=== PATIENT | female | born 1960 | race Two or more races ===

== ENCOUNTER → 2018-08-08 10:23 | Outpatient (CLI) | payer OTHER, SELFPAY ==
--- NOTE | 2018-08-08 | COLBX_PTH ---
PATIENT: RAZ TIRADO LOC: [facility] U#:[id number] AGE/SX: 65/F ROOM: RE08/08/[address]: Dr. Ag Cobb MD : 1960 BED: DIS: SPEC #: [id number] RECD: 08/08/18 15:36 STATUS: JAZMYNE AGUILA #: [id number] NINA: 08/08/18 00:[address]: Ag Cobb DEPT: SURGICAL PATHOLOGY RECD BY: Quincy Mcghee ENTERED: 08/11/18 13:37 SP TYPE: COLON BX OTHR DR: TEZ Tissues: Sigmoid colon biopsy Procedures: Surgery Specimen Level IV HEADER OPERATION: Colonoscopy with biopsies PRE-OP DIAGNOSIS: History of polyps TISSUE SUBMITTED: Sigmoid polyp, rule out adenoma MICROSCOPIC DIAGNOSIS Sigmoid polyp, biopsy: Fragments of hyperplastic polyp. SJ:osman 08/12/18 MICROSCOPIC DESCRIPTION Slides are reviewed. GROSS DESCRIPTION Received in fixative is one container labeled with the patient's name and designated sigmoid polyp. The specimen consists of multiple irregular fragments of light em soft tissue that in aggregate measure 1 x 0.3 x 0.1 cm. The specimen is totally submitted in one cassette. / SJ:osman 08/11/18 TC:1 CPT: 64101
== END ==
PROVIDERS: Referring Provider Internal Medicine Gastroenterology; Visit Provider Internal Medicine Gastroenterology
DX: K63.5 Polyp of colon (principal)
CPT/HCPCS: 88305

== ENCOUNTER → 2020-04-15 09:35 | Outpatient (CLI) | payer OTHER, SELFPAY ==
--- NOTE | 2020-04-15 09:38 | RAD_ITS ---
STUDY: RIGHT HIP INJECTION REASON FOR EXAM: Female, 59 years old. Severe pain, decreased range of motion RADIATION DOSAGE (If Supplied By Facility): CTDIvol = ( ) mGy, DLP = ( ) mGycm. Individualized dose optimization techniques were used for this CT.? FLUOROSCOPY TIME (if supplied): ( 30 ) seconds TECHNIQUE: Fluoroscopically guided right hip injection COMPARISON: None. FINDINGS: After informed consent was obtained, the patient was placed on the fluoroscopic table in the supine position, and an appropriate site for right hip injection was determined. The area was prepped and draped in a sterile manner, and 2% Xylocaine was used as local anesthetic. Under fluoroscopic guidance, a 22-gauge spinal needle was advanced into the right hip capsule without difficulty. Patient was injected with a 4 mL solution of betamethasone and Xylocaine. Patient tolerated the procedure well with no immediate complications RAD/Inj/Asp Anibal Jt Should/Hip/Knee IMPRESSION: Successful fluoroscopically guided right hip injection Electronically Signed: Christiano Roblero MD at 13:56 EDT , Service support ,
== END ==
PROVIDERS: PCP Nurse Practitioner Family; Referring Provider Specialist; Visit Provider Specialist
DX: M16.11 Unilateral primary osteoarthritis, right hip (principal)
CPT/HCPCS: 20610; 77002; Q9967; J0702

== ENCOUNTER → 2025-10-06 | Outpatient (CLI) | payer MEDICARE, SELFPAY ==
--- NOTE | 2025-10-06 12:10 | RAD_ITS ---
PROCEDURE: HIP, UNI W/ PELVIS 2-3 VIEWS 10/06/2025 REASON FOR EXAM: RIGHT HIP PAIN TECHNIQUE: Procedure Code: RAD Modality: DX Procedure: HIP, UNI W/ PELVIS 2-3 VIEWS Laterality: Right FINDINGS: Status post right hip arthroplasty. No evidence of acute complication. Mild degenerative changes of the left hip. Degenerative changes of the partially visualized spine. RAD/HIP, UNI W/ Pelvis 2-3 Views IMPRESSION: As above. Reading Location: [facility]
--- OUTSIDE RECORDS SUMMARY | 2025-10-06 19:28 | XMS RPT_ITS | CCD ---
Author Organization [facility] Care Team Providers [facility] Consultant Name Role Phone BARNDON JOHNS Attending Unavailable ANDREASBRANDON Primary Care Unavailable ANDREASBRANDON Admitting Unavailable ANDREASBRANDON Attending Unavailable ANDREASBRANDON LEROY Primary Care Unavailable ANDREAS, BRANDON Jordan Admitting Unavailable BEBETO TUBING MILL 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, EVELIO Chao Primary Care [facility] WILLIAM DALTON Attending Unavailable BEBETO TUBING MILL 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, EVELIO Chao Primary Care U jade JONES MD, NGOC Attending Unavailable BEBETO TUBING MILL 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, EVELIO Chao Primary Care U jade JONES MD, NGOC Attending Unavailable BEBETO TUBING MILL 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, EVELIO Chao Primary Care U jade JONES MD, NGOC Consulting Unavailable BEBETO TUBING MILL 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, EVELIO Chao Primary Care U navailable BEBETO TUBING MILL 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, EVELIO Chao Attending U navailable BEBETO TUBING MILL 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, EVELIO Chao Attending U navailable BEBETO TUBING MILL 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, EVELIO Chao Primary Care U navailable BEBETO TUBING MILL 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, EVELIO Chao Attending U navailable BEBETO TUBING MILL 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, EVELIO Chao Primary Care U navailable BEBETO TUBING MILL 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, EVELIO Chao Primary Care U navailable BEBETO TUBING MILL 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, EVELIO Chao Attending U navailable Allergies Allergy Classification Reported Allergen(s) Allergy Type Date of Onset Reaction(s) Facility (8 sources) Doxycycline; Translations: [doxycycline] Drug Allergy Skin irritation (disorder), Blister (morphologic abnormality) [facility] Comment on above: Patient had extreme sensitivity to sun, cold and hot water. (3 sources) terbinafine; Translations: [terbinafine] Drug Allergy Constitutional sun sensitivity finding (finding) [facility] Medications Current Medications Medication Drug Class(es) Dates Sig (Normalized) Sig (Original) acetaminophen 325 mg / HYDROcodone bitartrate 5 mg oral tablet (1 source) Opioid Agonist Start: 07-22-2023 End: 07-27-2023 Guthrie 325- 5 mg oral tablet Dose = 1 tab(s), Oral, q4h, PRN Pain, scale 1-6, X 5 day(s), # 12 tab(s), 0 Refill(s), Pharmacy: [facility] #[id number], Acute post-operative pain, 165.1, cm, 07/22/23 8:50:00 EDT, Height, 86.3, kg, 07/22/23 8:50:00 EDT, Dosing Weight Start Date: 07/22/23 Stop Date: 07/27/23 Status: Ordered Aspir-Low 81 mg oral delayed release tablet (1 source) Start: 04-20-2019 Aspir-Low 81 mg oral delayed release tablet Dose : 81 mg = 1 tab(s), Oral, qDay, # 30 tab(s), 0 Refill(s) Start Date: 04/20/19 Status: Ordered Quantity: 30.0 Unit: tab(s) Repeat number: 1 aspirin 81 mg delayed release oral tablet (5 sources) Platelet Aggregation Inhibitor, Nonsteroidal Anti-inflammatory Drug Start: 04-20-2019 Aspir-Low 81 mg oral delayed release tablet Dose : 81 mg = 1 tab(s), Oral, qDay, # 30 tab(s), 0 Refill(s) Start Date: 04/20/19 Status: Ordered betamethasone 0.5 mg/ml topical cream (3 sources) Corticosteroid Start: 10-20-2024 apply 1 [IU] topically twice daily as needed betamethasone dipropionate 0.05% topical cream Apply 1 clinton, Topical, BID, PRN Rash, # 30 gram(s), 1 Refill(s), Pharmacy: [facility]/pharmacy #[id number], Cream, 165, cm, 10/20/24 9:25:00 EST, Height, 88.1, kg, 10/20/24 9:25:00 EST, Dosing Weight Start Date: 12/31/24 Status: Ordered Quantity: 30.0 Unit: g Repeat number: 2 Indications: Other psoriasis; Calcium, Magnesium and Zinc oral capsule (2 sources) Start: 05-11-2025 take 1 capsule by mouth twice daily at mealtime Calcium, Magnesium and Zinc oral capsule Dose = 3 cap(s), Oral, BID, with food, # 100 cap(s), 0 Refill(s) Start Date: 05/11/25 Status: Ordered Quantity: 100.0 Unit: cap(s) Repeat number: 1 Calcium, Magnesium and Zinc oral tablet (7 sources) Start: 07-10-2023 take 1 tablet by mouth once daily Calcium, Magnesium and Zinc oral tablet Dose = 1 tab(s), Oral, qDay, # 30 tab(s), 0 Refill(s) Start Date: 07/10/23 Status: Ordered Quantity: 30.0 Unit: tab(s) Repeat number: 1 Start: 07-10-2023 take 1 tablet by cherelle th once daily Calcium, Magnesium and Zinc oral tablet Dose = 1 tab(s), Oral, qDay, # 30 tab(s), 0 Refill(s) Start Date: 07/10/23 Status: Ordered Start: 08-30-2020 take 1 tablet by cherelle th once daily Calcium, Magnesium and Zinc oral tablet tab(s), Oral, qDay, 0 Refill(s) Start Date: 08/30/20 Status: Ordered Cholecalciferol (8 sources) Vitamin D Start: 07-19-2020 take 1 capsule by mouth once daily Vitamin D (3) 45 units oral capsule qDay, 0 Refill(s) Start Date: 07/19/20 Status: Ordered Repeat number: 1 Start: 07-19-2020 Vitamin D (3) 45 units oral capsule qDay, 0 Refill(s) Start Date: 07/19/20 Status: Ordered clonazePAM 0.5 mg oral tablet (8 sources) Benzodiazepine Start: 02-25-2025 End: 05-26-2025 clonazePAM 0.5 mg oral tablet Dose : 0.5 mg = 1 tab(s), Oral, BID, Fill Date: 02/24/2025, # 60 tab(s), 2 Refill(s), Pharmacy: [facility]/pharmacy #[id number], MARZENA (generalized anxiety disorder) Medication management contract signed 03/2021, 165, cm, 02/25/25 9:56:00 EDT, Height, 87.2, kg, 02/25/25 9:56:00 EDT, Dosing Weight Start Date: 02/25/25 Stop Date: 05/26/25 Status: Ordered Quantity: 60.0 Unit: tab(s) Repeat number: 3 Indications: Encounter for other administrative examinations; Generalized anxiety disorder; Start: 11-22-2023 End: 05-20-2024 clonazePAM 0.5 mg oral table t Dose : 0.5 mg = 1 tab(s), Oral, BID, Fill Date: 02/21/2024, # 60 tab(s), 2 Refill(s), Pharmacy: [facility] #[id number], MARZENA (generalized anxiety disorder) Medication management contract signed 03/2021, 165.6, cm, 02/20/24 9:43:00 EDT, Height, 90.3, kg, 02/20/24 9:43:00 EDT, Dosing Weight Start Date: 02/20/24 Stop Date: 05/20/24 Status: Ordered Start: 04-29-2023 End: 07-28-2023 clonazePAM 0.5 mg oral table t Dose : 0.5 mg = 1 tab(s), Oral, BID, Fill Date: 05/01/2023, # 60 tab(s), 2 Refill(s), Pharmacy: [facility] #[id number], MARZENA (generalized anxiety disorder) Medication management contract signed 03/2021, 165, cm, 04/29/23 10:11:00 EDT, Height, 90, kg, 04/29/23 10:11:00 EDT, Dosing Weight Start Date: 04/29/23 Stop Date: 07/28/23 Status: Ordered Start: 10-08-2022 End: 01-06-2023 clonazePAM 0.5 mg oral table t Dose : 0.5 mg = 1 tab(s), Oral, BID, Fill Date: 10/09/2022, # 60 tab(s), 2 Refill(s), Pharmacy: [facility] #[id number], MARZENA (generalized anxiety disorder) Medication management contract signed 03/2021, 165.5, cm, 10/08/22 9:40:00 EST, Height, 90.8, kg, ... Start Date: 10/08/22 Stop Date: 01/06/23 Status: Ordered Start: 10-05-2021 End: 01-03-2022 clonazePAM 0.5 mg oral table t Dose : 0.5 mg = 1 tab(s), Oral, BID, # 60 tab(s), 2 Refill(s), Pharmacy: [facility] MARZENA (generalized anxiety disorder) Medication management contract signed 03/2021, 165.5, cm, 09/26/21 9:38:00 EST, Height, 87.8, kg, 09/26/21 9:38:00 E... Start Date: 10/05/21 Stop Date: 01/03/22 Status: Ordered esomeprazole 20 mg delayed release oral capsule (8 sources) Proton Pump Inhibitor Start: 02-25-2025 End: 08-24-2025 esomeprazole 20 mg oral delayed release capsule Dose : 20 mg = 1 cap(s), Oral, qDay, # 90 cap(s), 1 Refill(s), Pharmacy: [facility]/pharmacy #[id number], GERD without esophagitis, 165, cm, 02/25/25 9:56:00 EDT, Height, kg, 02/25/25 9:56:00 EDT, Dosing Weight Start Date: 02/25/25 Stop Date: 08/24/25 Status: Ordered Quantity: 90.0 Unit: cap(s) Repeat number: 2 Indications: Gastro-esophageal reflux disease without esophagitis; Start: 02-20-2024 End: 08-18-2024 esomeprazole 20 mg oral hudson yed release capsule Dose : 20 mg = 1 cap(s), Oral, qDay, # 90 cap(s), 1 Refill(s), Pharmacy: [facility] #[id number], GERD without esophagitis, 165.6, cm, 02/20/24 9:43:00 EDT, Height, kg, 02/20/24 9:43:00 EDT, Dosing Weight Start Date: 02/20/24 Stop Date: 08/18/24 Status: Ordered Start: 08-23-2023 End: 02-19-2024 esomeprazole 20 mg oral hudson yed release capsule Dose : 20 mg = 1 cap(s), Oral, qDay, # 90 cap(s), 1 Refill(s), [facility]acy: [facility] #[id number], GERD without esophagitis, 163, cm, 08/23/23 9:02:00 EDT, Height, kg, 08/23/23 9:02:00 EDT, Dosing Weight Start Date: 08/23/23 Stop Date: 02/19/24 Status: Ordered Start: 12-05-2021 End: 09-01-2022 esomeprazole 20 mg oral hudson yed release capsule Dose : 20 mg = 1 cap(s), Oral, qDay, # 90 cap(s), 2 Refill(s), [facility]acy: [facility] 165.5, cm, 12/05/21 9:42:00 EST, Height, kg, 12/05/21 9:42:00 EST, Dosing Weight Start Date: 12/05/21 Stop Date: 09/01/22 Status: Ordered Start: 06-19-2019 esomeprazole 2 0 mg oral delayed release capsule Dose : 20 mg = 1 cap(s), Oral, qDay, # 30 cap(s), 3 Refill(s), Pharmacy: [facility] Start Date: 06/19/19 Status: Ordered hydroCHLOROthiazide 12.5 mg / lisinopril 20 mg oral tablet (8 sources) Thiazide Diuretic, Angiotensin Converting Enzyme Inhibitor Start: 01-29-2025 End: 07-28-2025 take 1 tablet by mouth once daily hydrochlorothiazide-lisinopril 12.5 mg-20 mg oral tablet Dose = 1 tab(s), Oral, Daily, # 90 tab(s), 1 Refill(s), Pharmacy: [facility]/pharmacy #[id number], 165, cm, 11/24/24 10:47:00 EST, Height, kg, 11/24/24 10:47:00 EST, Dosing Weight Start Date: 01/29/25 Stop Date: 07/28/25 Status: Ordered Quantity: 90.0 Unit: tab(s) Repeat number: 2 Start: 12-17-2023 take 1 tablet by cherelle th once daily hydrochlorothiazide-lisinopril 12.5 mg-2 0 mg oral tablet Dose = 1 tab(s), Oral, Daily, # 90 tab(s), 0 Refill(s), Pharmacy: [facility], 165.5, cm, 12/13/23 9:38:00 EST, Height, kg, 12/13/23 9:38:00 EST, Dosing Weight Start Date: 12/17/23 Status: Ordered Start: 10-11-2023 take 1 tablet by cherelle th once daily hydrochlorothiazide-lisinopril 12.5 mg-2 0 mg oral tablet Dose = 1 tab(s), Oral, Daily, filling in lieu of pcp, # 90 tab(s), 0 Refill(s), Pharmacy: [facility], 163, cm, 08/23/23 9:02:00 EDT, Height, kg, 08/23/23 9:02:00 EDT, Dosing Weight Start Date: 10/11/23 Status: Ordered Start: 04-09-2023 take 1 tablet by cherelle th once daily hydrochlorothiazide-lisinopril 12.5 mg-2 0 mg oral tablet Dose = 1 tab(s), Oral, Daily, # 90 tab(s), 1 Refill(s), Pharmacy: [facility], 163.5, cm, 04/09/23 8:59:00 EDT, Height, kg, 04/09/23 8:59:00 EDT, Dosing Weight Start Date: 04/09/23 Status: Ordered Start: 11-16-2022 take 1 tablet by cherelle th once daily hydrochlorothiazide-lisinopril 12.5 mg-2 0 mg oral tablet Dose = 1 tab(s), Oral, Daily, # 90 tab(s), 0 Refill(s) Start Date: 11/16/22 Status: Ordered Start: 09-21-2021 take 1 tablet by cherelle th once daily hydrochlorothiazide-lisinopril 12.5 mg-2 0 mg oral tablet See Instructions, TAKE 1 TABLET DAILY, # 90 tab(s), 2 Refill(s), Pharmacy: [facility], 165.5, cm, 06/27/21 9:38:00 EDT, Height, kg, 06/27/21 9:38:00 EDT, Dosing Weight Start Date: 09/21/21 Status: Ordered mometasone furoate 1 mg/ml topical cream (1 source) Corticosteroid Start: 12-07-2021 End: 12-07-2022 mometasone 0.1% topical cream Apply 1 clinton, Topical, qDay, # 30 gram(s), 0 Refill(s), Pharmacy: [facility], Cream, 165.5, cm, 12/05/21 9:42:00 EST, Height, 87.2, kg, 12/05/21 9:42:00 EST, Dosing Weight Start Date: 12/07/21 Stop Date: 12/07/22 Status: Ordered pimecrolimus 10 mg/ml topical cream (7 sources) Calcineurin Inhibitor Immunosuppressant Start: 12-05-2021 pimecrolimus 1% topical cream 0 Refill(s), 87.8 Start Date: 12/05/21 Status: Ordered Repeat number: 1 terbinafine hydrochloride 10 mg/ml topical cream (1 source) Allylamine Antifungal Start: 03-01-2025 terbinaf ine 1% topical cream Apply 1 clinton, Topical, BID, # 24 gram(s), 0 Refill(s), Pharmacy: [facility]/pharmacy #[id number], Cream, 165, cm, 02/25/25 9:56:00 EDT, Height, 87.2, kg, 02/25/25 9:56:00 EDT, Dosing Weight Start Date: 03/01/25 Status: Ordered Quantity: 24.0 Unit: g Repeat number: 1 triamcinolone acetonide 1 mg/ml topical cream (8 sources) Corticosteroid Start: 04-20-2019 triamcinolone 0.1% topical cream Apply 1 clinton, Topical, TID, # 80 gram(s), 0 Refill(s), Cream Start Date: 04/20/19 Status: Ordered Quantity: 80.0 Unit: g Repeat number: 1 Start: 04-20-2019 triamcinolone 0.1% topical cream Apply 1 clinton, Topical, TID, # 80 gram(s), 0 Refill(s), Cream Start Date: 04/20/19 Status: Ordered valACYclovir 500 mg oral tablet (8 sources) Herpesvirus Nucleoside Analog DNA Polymerase Inhibitor, Herpes Simplex Virus Nucleoside Analog DNA Polymerase Inhibitor, Herpes Zoster Virus Nucleoside Analog DNA Polymerase Inhibitor Start: 05-05-2024 Valtrex 500 mg oral tablet Dose : 500 mg = 1 tab(s), Oral, BID, as needed for outbreaks, # 80 tab(s), 3 Refill(s), Pharmacy: [facility], History of cold sores, 164, cm, 04/15/24 8:34:00 EDT, Height, 89, kg, 04/15/24 8:34:00 EDT, Dosing Weight Start Date: 05/05/24 Status: Ordered Quantity: 80.0 Unit: tab(s) Repeat number: 4 Indications: Personal history of other infectious and parasitic diseases; Start: 08-23-2023 Valtrex 500 mg oral tablet Dose : 500 mg = 1 tab(s), Oral, BID, as needed for outbreaks, # 80 tab(s), 3 Refill(s), [facility]: [facility] #[id number], History of cold sores, 163, cm, 08/23/23 9:02:00 EDT, Height, 88.5, kg, 08/23/23 9:02:00 EDT, Dosing Weight Start Date: 08/23/23 Status: Ordered Start: 01-18-2023 Valtrex 500 mg oral tablet Dose : 500 mg = 1 tab(s), Oral, BID, as needed for outbreaks, # 80 tab(s), 3 Refill(s), Pharmacy: [facility], History of cold sores, 166, cm, 01/18/23 9:37:00 EDT, Height, 90.5, kg, 01/18/23 9:37:00 EDT, Dosing Weight Start Date: 01/18/23 Status: Ordered Start: 02-24-2021 Valtrex 500 mg oral tablet Dose : 500 mg = 1 tab(s), Oral, BID, as needed for outbreaks, # 80 tab(s), 3 Refill(s), Pharmacy: [facility], History of cold sores, 166, cm, 12/27/20 10:42:00 EST, Height, 86.5, kg, 12/27/20 10:42:00 EST, Dosing Weight Start Date: 02/24/21 Status: Ordered Completed/Discontinued Medications Medication Drug Class(es) Dates Sig (Normalized) Sig (Original) Albuterol (1 source) beta2-Adrenergic Agonist Start: 08-04-2019 End: 09-03-2019 take 1 puff(s) by inhalation every four hours Ventolin HFA MDI (90 mcg/inh) inhalation aerosol 1 puff(s), Inhalation, q4h, # 1 inhaler, 0 Refill(s), Pharm[facility]: [facility] Bronchitis Start Date: 08/04/19 Stop Date: 09/03/19 Status: Ordered albuterol MDI (90 mcg/inh) CFC free inhalation aerosol (7 sources) Start: 05-21-2024 End: 11-17-2024 take 2 puff(s) by inhalation every six hours albuterol MDI (90 mcg/inh) CFC free inhalation aerosol 2 puff(s), Inhalation, q6h, # 18 gram(s), 5 Refill(s), Pharmacy: [facility]/pharmacy #[id number], Seasonal asthma, 164, cm, 05/21/24 9:43:00 EDT, Height, kg, 05/21/24 9:43:00 EDT, Dosing Weight Start Date: 05/21/24 Stop Date: 11/17/24 Status: Ordered Quantity: 18.0 Unit: g Repeat number: 6 Indications: Other asthma; Start: 05-02-2023 End: 10-29-2023 take 2 puff(s) by inhalation every six hours albuterol MDI (90 mcg/inh) CFC free inhalation aerosol 2 puff(s), Inhalation, q6h, # 18 gram(s), 5 Refill(s), Pharmacy: [facility] #[id number], Seasonal asthma, 165, cm, 04/29/23 10:11:00 EDT, Height, kg, 04/29/23 10:11:00 EDT, Dosing Weight Start Date: 05/02/23 Stop Date: 10/29/23 Status: Ordered Start: 04-09-2022 End: 10-06-2022 take 2 puff(s) by inhalation every six hours albuterol MDI (90 mcg/inh) CFC free inhalation aerosol 2 puff(s), Inhalation, q6h, # 18 gram(s), 5 Refill(s), Pharmacy: [facility] [address] Seasonal asthma, 165.5, cm, 04/09/22 9:37:00 EDT, Height Start Date: 04/09/22 Stop Date: 10/06/22 Status: Ordered colchicine 0.6 mg oral table t (4 sources) Start: 07-09-2022 End: 08-20-2022 colchicine 0.6 mg oral table t Dose : 0.6 mg = 1 tab(s), Oral, BID, PRN acute gout flares, # 28 tab(s), 2 Refill(s), [facility] #[id number], Gout flare, 165.5, cm, 07/09/22 9:52:00 EDT, Height, kg, 07/09/22 9:52:00 EDT, Dosing Weight Start Date: 07/09/22 Stop Date: 08/20/22 Status: Ordered Problems Problem Classification Problem Date Documented Date Episodic/Chronic Abdominal hernia (6 sources) Umbilical hernia 04-09-2023 Episodic Allergic reactions (16 sources) Eczema; Translations: [Environmental allergy] 04-30-2019 Episodic Anxiety disorders (10 sources) Generalized anxiety disorder; Translations: [Generalized anxiety disorder] Onset: 02-25-2025 04-20-2019 Chronic Asthma (7 sources) Seasonal asthma 04-09-2022 Chronic Disorders of lipid metabolism (15 sources) Hyperlipidemia; Translations: [Hypercholesterolemia] 04-30-2019 Chronic Esophageal disorders (8 sources) Gastroesophageal reflux disease without esophagitis 04-20-2019 Chronic Essential hypertension (8 sources) Hypertensive disorder 04-20-2019 Chronic Gout and other crystal arthropathies (8 sources) Gout 04-30-2019 Chronic Nutritional deficiencies (8 sources) Vitamin D deficiency 09-26-2021 Chronic Other and unspecified benign neoplasm (3 sources) Polyp of colon 04-06-2024 Episodic Other bone disease and musculoskeletal deformities (8 sources) Osteopenia 12-27-2020 Episodic Other infections; including parasitic (8 sources) H/O: viral illness 11-22-2020 Episodic Other inflammatory condition of skin (3 sources) 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 Other nervous system disorders (1 source) Postoperative pain ; Translations: [Other acute postprocedural pain] Onset: 07-22-2023 Episodic Other nutritional; endocrine; and metabolic disorders (6 sources) Body mass index 30+ - obesity 12-07-2022 Chronic Other screening for suspected conditions (not mental disorders or infectious disease) (1 source) Encounter for screening mammogram for malignant neoplasm of breast; Translations: [Encounter for screening mammogram for malignant neoplasm of breast] Onset: 05-14-2025 Episodic Other skin disorders (3 sources) Onycholysis 02-25-2025 Episodic Other upper respiratory disease (8 sources) Seasonal allergy 04-20-2019 Chronic Residual codes; unclassified (8 sources) Increased body mass index 08-30-2020 Episodic Residual codes; unclassified (8 sources) Postmenopausal state 11-22-2020 Episodic Unclassified (8 sources) Drug therapy finding 03-28-2021 Comment on above: Medication managemen t contract signed 03/2022 Medication managemen t contract signed & renewed 03/2023 Contract renewed 10/2023 Unclassified (20 sources) Patient encounter status 11-22-2020 Comment on above: BILATERAL DIGITAL SC REENING MAMMOGRAM 3D/2D WITH CAD WITH MEDIOLATERAL OBLIQUE CRANIOCAUDAL: 11/23/2019 Comparison is made to exams dated: 11/20/2018 mammogram and 11/11/2017 mammogram - [facility]. The tissue of both breasts is predominately fatty. Current study was also evaluated with a Computer Aided Detection (CAD) system. There is a benign calcification in the right breast. There also is a benign density and a calcification in the left breast. No significant masses, calcifications, or other findings are seen in either breast. There has been no significant interval change. IMPRESSION: BENIGN There is no mammographic evidence of malignancy. A 1 year screening mammogram is recommended. (11/23/2020) BILATERAL DIGITAL SC REENING MAMMOGRAM 3D/2D WITH CAD WITH MEDIOLATERAL OBLIQUE CRANIOCAUDAL: 11/23/2019 Comparison is made to exams dated: 11/20/2018 mammogram and 11/11/2017 mammogram - [facility]. The tissue of both breasts is predominately fatty. Current study was also evaluated with a Computer Aided Detection (CAD) system. There is a benign calcification in the right breast. There also is a benign density and a calcification in the left breast. No significant masses, calcifications, or other findings are seen in either breast. There has been no significant interval change. IMPRESSION: BENIGN There is no mammographic evidence of malignancy. A 1 year screening mammogram is recommended. (11/23/2020) Unclassified (2 sources) Cancer cervix screening status 05-11-2025 Unclassified (2 sources) Immunization status 05-11-2025 Results Test Name Value Interpretation Reference Range Facility [facility] MAMMOGRAM SCREENING BILAT ERAL W/TOMOon 05-17-2025 MA MAMMOGRAM SCREENING BILATERAL W/DOMINICK ORIGINAL FROM: [facility] [address] [place], [place] [address] PROCEDURE FOR: RAZ TIRADO [address] [place] [address] Home: PID#: [id number] Exam#: [id number] : 1960 Age: 64 TO: EVELIO STEPHENS TUBING MILL OPERATOR HOOK AND EYE MACHINE OPERATOR [address] [place], [place] [address] Fax: NO FAX EXAMINATION: SCREENING DIGITAL BILATERAL MAMMOGRAM WITH TOMOSYNTHESIS, 05/14/2025 10:35 am TECHNIQUE: Screening mammography of the bilateral breasts was performed with tomosynthesis. 2D standard and 3D tomosynthesis combination imaging performed through both breasts in the MLO and CC projection. Computer aided detection was utilized in the interpretation of this exam. COMPARISON: 12/04/2023, 11/30/2022 HISTORY: Breast cancer screening. FINDINGS: BREAST DENSITY: There are scattered areas of fibroglandular density. There are benign appearing calcifications in both breasts. There is a benign appearing unchanged asymmetry in the left breast. There are no significant masses or calcifications. IMPRESSION: No mammographic evidence of malignancy. Continued screening with annual mammograms is recommended. Meri Santo risk calculations, generated with the history provided, report this patient's 10 year risk and lifetime risk for developing breast cancer at 2.9% and 6.4%, respectively. Based on this assessment tool, if the patient's calculated lifetime risk is below 20%, then the patient is considered at average risk for developing breast cancer. If the patient's calculated lifetime risk is at or above 20%, then the patient is considered high risk for developing breast cancer and may be a candidate for supplemental breast MRI screening in addition to annual mammographic screening per the [employer]. BIRADS: BI-RADS: 2: Benign RECALL: 1 year screening RECALL TYPE: mammo LETTER SENT: Normal BI-RADS 1 and 2 Interpreted by: Naga Larson MD Preliminary Report By: Naga Larson MD Electronically signed By Naga Larson MD Dictated Date: 05/17/2025 10:19:13 PM Prelim Date: 05/17/2025 10:20:13 PM Sign Date: 05/17/2025 10:20:13 PM Ordering Provider: EVELIO STEPHENS Pricing Analyst: ARMANDO PRIEST RT (R)(M) letter sent: Normal BI-RADS 1 and 2 Mammogram BI-RADS: 2 Benign Normal [facility] .Auto Diffon 05-11-2025 Basophil, Absolute 0.0 10 3/mcL Normal 0.0-0.3 [facility] Comment on above: Performed By: #### G FR, ADIFF, CBC, LIPID, ANEU, CMP #### [address] [address] Basophils/100 WBC (Bld) 0.5 % Normal 0.0-2.5 [facility] Comment on above: Performed By: #### G FR, ADIFF, CBC, LIPID, ANEU, CMP #### [address] [address] Eosinophil, Absolute 0.1 10 3/mcL Normal 0.0-0.7 [facility] [place] [facility] Comment on above: Performed By: #### G FR, ADIFF, CBC, LIPID, ANEU, CMP #### [address] [address] Eosinophils/100 WBC (Bld) 2.4 % Normal 0.0-6.0 [facility] Comment on above: Performed By: #### G FR, ADIFF, CBC, LIPID, ANEU, CMP #### [address] [address] Lymphocyte, Absolute 1.9 10 3/mcL Normal 0.9-4.3 [facility] [place] [facility] Comment on above: Performed By: #### G FR, ADIFF, CBC, LIPID, ANEU, CMP #### [address] [address] Lymphocytes/100 WBC (Bld) 33.5 % Normal 20.0-40.0 [facility] Comment on above: Performed By: #### G FR, ADIFF, CBC, LIPID, ANEU, CMP #### [address] [address] Monocyte, Absolute 0.5 10 3/mcL Normal 0.1-1.4 [facility] Comment on above: Performed By: #### G FR, ADIFF, CBC, LIPID, ANEU, CMP #### [address] [address] Monocytes/100 WBC (Bld) 8.8 % Normal 2.0-13.0 [facility] Comment on above: Performed By: #### G FR, ADIFF, CBC, LIPID, ANEU, CMP #### [address] [address] Neutrophils/100 WBC (Bld) 54.8 % Normal 50.0-75.0 [facility] Comment on above: Performed By: #### G FR, ADIFF, CBC, LIPID, ANEU, CMP #### [address] [address] .GFRon 05-11-2025 Estimated Glomerular Filtration Rate 82 ml/min/1.73sqm Normal [facility] Comment on above: Result Comment: Stages of Chronic Kidney Disease (CKD) Stage Description eGFR(ml/min/1.73 sq.m.) CKD 1 Normal kidney function or >=90 normal kindney function with possible kidney damage (ex. Proteinuria) CKD 2 Kidney damage with mild loss 60-89 of kidney function CKD 3a Mild to moderate loss of kidney 45-59 function CKD 3b Moderate to severe loss of 30-44 of kindey function CKD 4 Severe loss of kidney function 15-29 CKD 5 Kidney failure <15 Note: (go live 2024) the eGFR calculation was updated to the 2020 CKD-EPI creatinine equation without a race factor to calculate the eGFR results. Performed By: #### G FR, ADIFF, CBC, LIPID, ANEU, CMP #### [address] [address] .NEUABSon 05-11-2025 Neutrophil, Absolute 3.1 10 3/mcL Normal 2.3-8.1 [facility] Comment on above: Performed By: #### G FR, ADIFF, CBC, LIPID, ANEU, CMP #### [address] [address] CBCon 05-11-2025 Erythrocyte distribution width (RBC) [Ratio] 11.8 % Normal 11.5-15.5 [facility] Comment on above: Performed By: #### G FR, ADIFF, CBC, LIPID, ANEU, CMP #### [address] [address] Hematocrit (Bld) [Volume fraction] 44.0 % Normal 34.0-46.0 [facility] Comment on above: Performed By: #### G FR, ADIFF, CBC, LIPID, ANEU, CMP #### [place] [address] Hgb 15.0 G/dL Normal 12.0-16.0 [facility] Comment on above: Performed By: #### G FR, ADIFF, CBC, LIPID, ANEU, CMP #### [address] [address] MCH (RBC) [Entitic mass] 32.1 pg Normal 27.0-33.0 [facility] Comment on above: Performed By: #### G FR, ADIFF, CBC, LIPID, ANEU, CMP #### [place] [address] MCHC 34.1 G/dL Normal 32.0-36.0 [facility] Comment on above: Performed By: #### G FR, ADIFF, CBC, LIPID, ANEU, CMP #### [place] [address] MCV (RBC) [Entitic vol] 94.2 fL Normal 80.0-99.0 [facility] Comment on above: Performed By: #### G FR, ADIFF, CBC, LIPID, ANEU, CMP #### [place] [address] Platelet 152 10 3/mcL Normal 150-450 [facility] Comment on above: Performed By: #### G FR, ADIFF, CBC, LIPID, ANEU, CMP #### [address] [address] Platelet mean volume (Bld) [Entitic vol] 10.6 fL High 6.6-10.5 [facility] Comment on above: Performed By: #### G FR, ADIFF, CBC, LIPID, ANEU, CMP #### [address] [address] RBC 4.67 10 6/mcL Normal 4.10-5.30 [facility] Comment on above: Performed By: #### G FR, ADIFF, CBC, LIPID, ANEU, CMP #### [place] [address] WBC 5.7 10 3/mcL Normal 4.5-10.8 [facility] Comment on above: Performed By: #### G FR, ADIFF, CBC, LIPID, ANEU, CMP #### [place] [id number] CMPon 05-11-2025 Albumin Level 4.1 G/dL Normal 3.4-4.8 [facility] Comment on above: Performed By: #### G FR, ADIFF, CBC, LIPID, ANEU, CMP #### [place] [id number] Albumin/Globulin [Mass ratio] 1.3 {ratio} Normal 1.1-2.5 [facility] Comment on above: Performed By: #### G FR, ADIFF, CBC, LIPID, ANEU, CMP #### [address] [address] ALP [Catalytic activity/Vol] 84 U/L Normal 40-135 [facility] Comment on above: Performed By: #### G FR, ADIFF, CBC, LIPID, ANEU, CMP #### [address] [address] ALT [Catalytic activity/Vol] 71 U/L High 14-59 [facility] Comment on above: Performed By: #### G FR, ADIFF, CBC, LIPID, ANEU, CMP #### [address] [address] AST [Catalytic activity/Vol] 40 U/L Normal 10-40 [facility] Comment on above: Performed By: #### G FR, ADIFF, CBC, LIPID, ANEU, CMP #### [address] [address] Bili Total 0.8 mg/dL Normal 0.2-1.0 [facility] Comment on above: Result Comment: Use of this assay is not recommended for patients undergoing treatment with eltrombopag due to the potential for falsely elevated results. Performed By: #### G FR, ADIFF, CBC, LIPID, ANEU, CMP #### [address] [address] BUN/Creatinine Ratio 22 ratio Normal 7-27 [facility] Comment on above: Performed By: #### G FR, ADIFF, CBC, LIPID, ANEU, CMP #### [address] [address] Calcium [Mass/Vol] 9.5 mg/dL Normal 8.4-10.2 [facility] Comment on above: Performed By: #### G FR, ADIFF, CBC, LIPID, ANEU, CMP #### [address] [address] Chloride [Moles/Vol] 105 mmol/L Normal 98-107 [facility] Comment on above: Performed By: #### G FR, ADIFF, CBC, LIPID, ANEU, CMP #### [address] [address] CO2 [Moles/Vol] 26 mmol/L Normal 23-31 [facility] Comment on above: Performed By: #### G FR, ADIFF, CBC, LIPID, ANEU, CMP #### [address] [address] Creatinine [Mass/Vol] 0.80 mg/dL Normal 0.51-0.95 [facility] Comment on above: Performed By: #### G FR, ADIFF, CBC, LIPID, ANEU, CMP #### [address] [address] Electrolyte Balance 9.0 mEq/L Normal 4.0-15.0 [facility] Comment on above: Performed By: #### G FR, ADIFF, CBC, LIPID, ANEU, CMP #### [address] [address] Globulin 3.2 G/dL Normal 2.7-4.4 [facility] Comment on above: Performed By: #### G FR, ADIFF, CBC, LIPID, ANEU, CMP #### [place] [address] Glucose [Mass/Vol] 102 mg/dL Normal 80-115 [facility] Comment on above: Performed By: #### G FR, ADIFF, CBC, LIPID, ANEU, CMP #### [address] [address] Potassium [Moles/Vol] 4.1 mmol/L Normal 3.5-5.1 [facility] Comment on above: Performed By: #### G FR, ADIFF, CBC, LIPID, ANEU, CMP #### [address] [address] Sodium [Moles/Vol] 140 mmol/L Normal 136-145 [facility] Comment on above: Performed By: #### G FR, ADIFF, CBC, LIPID, ANEU, CMP #### [address] [address] Total Protein 7.3 G/dL Normal 6.4-8.2 [facility] Comment on above: Performed By: #### G FR, ADIFF, CBC, LIPID, ANEU, CMP #### [address] [address] Urea nitrogen [Mass/Vol] 18 mg/dL Normal 7-18 [facility] Comment on above: Performed By: #### G FR, ADIFF, CBC, LIPID, ANEU, CMP #### [address] [place] [address] [place], [place] [address] LABORATORYOrdered By: SYSTEM SYSTEM on 05-11-2025 Albumin BCP dye [Mass/Vol] 4.1 G/dL Normal 3.4 - 4.8 G/dL AO ADM SS Albumin/Globulin [Mass ratio] 1.3 {ratio} Normal 1.1 - 2.5 ratio AO ADM SS ALP [Catalytic activity/Vol] 84 U/L Normal 40 - 135 U/L AO ADM SS ALT With P-5'-P [Catalytic activity/Vol] 71 U/L High 14 - 59 U/L AO ADM SS AST With P-5'-P [Catalytic activity/Vol] 40 U/L Normal 10 - 40 U/L AO ADM SS Basophils (Bld) [#/Vol] 0.0 103/mcL Normal 0.0 - 0.3 10^3/mcL AO Workflow SS Basophils/100 WBC (Bld) 0.5 % Normal 0.0 - 2.5 % AO Workflow SS Bilirubin [Mass/Vol] 0.8 mg/dL Normal 0.2 - 1 .0 mg/dL AO ADM SS Comment on above: Interpretive Data: U se of this assay is not recommended for patients undergoing treatment with eltrombopag due to the potential for falsely elevated results. Calcium [Mass/Vol] 9.5 mg/dL Normal 8.4 - 10. 2 mg/dL AO ADM SS Chloride [Moles/Vol] 105 mmol/L Normal 98 - 10 7 mmol/L AO ADM SS CO2 [Moles/Vol] 26 mmol/L Normal 23 - 31 mmol/L AO ADM SS Creatinine [Mass/Vol] 0.80 mg/dL Normal 0.51 - 0.95 mg/dL AO ADM SS Electrolyte Balance 9.0 mEq/L Normal 4.0 - 15 .0 mEq/L AO ADM SS Eosinophil, Absolute 0.1 103/mcL Normal 0.0 - 0 .7 10^3/mcL AO Workflow SS Eosinophils/100 WBC (Bld) 2.4 % Normal 0.0 - 6.0 % AO Workflow SS Erythrocyte distribution width (RBC) [Ratio] 11.8 % Normal 11.5 - 15.5 % AO Workflow SS Estimated Glomerular Filtration Rate 82 ml/min/1.73sqm Invalid Interpretation Code AO Chemistry S Comment on above: Interpretive Data: Stages of Chronic Kidney Disease (CKD) Stage Description eGFR(ml/min/1.73 sq.m.) CKD 1 Normal kidney function or >=90 normal kindney function with possible kidney damage (ex. Proteinuria) CKD 2 Kidney damage with mild loss 60-89 of kidney function CKD 3a Mild to moderate loss of kidney 45-59 function CKD 3b Moderate to severe loss of 30-44 of kindey function CKD 4 Severe loss of kidney function 15-29 CKD 5 Kidney failure <15 Note: (go live 2024) the eGFR calculation was updated to the 2020 CKD-EPI creatinine equation without a race factor to calculate the eGFR results. Globulin 3.2 G/dL Normal 2.7 - 4.4 G/dL AO ADM SS Glucose [Mass/Vol] 102 mg/dL Normal 80 - 115 mg/dL AO ADM SS Hematocrit (Bld) [Volume fraction] 44.0 % Normal 34.0 - 46.0 % AO Workflow SS Hemoglobin (Bld) [Mass/Vol] 15.0 G/dL Normal 12.0 - 16.0 G/dL AO Workflow SS Lymphocytes (Bld) [#/Vol] 1.9 103/mcL Normal 0.9 - 4.3 10^3/mcL AO Workflow SS Lymphocytes/100 WBC (Bld) 33.5 % Normal 20.0 - 40.0 % AO Workflow SS MCH (RBC) [Entitic mass] 32.1 pg Normal 27.0 - 33.0 pg AO Workflow SS MCHC 34.1 G/dL Normal 32.0 - 36.0 G/dL AO Workflow SS MCV (RBC) [Entitic vol] 94.2 fL Normal 80.0 - 99.0 fL AO Workflow SS Monocytes (Bld) [#/Vol] 0.5 103/mcL Normal 0.1 - 1.4 10^3/mcL AO Workflow SS Monocytes/100 WBC (Bld) 8.8 % Normal 2.0 - 13.0 % AO Workflow SS Neutrophils (Bld) [#/Vol] 3.1 103/mcL Normal 2.3 - 8.1 10^3/mcL AO Workflow SS Neutrophils/100 WBC (Bld) 54.8 % Normal 50.0 - 75.0 % AO Workflow SS Platelet mean volume (Bld) [Entitic vol] 10.6 fL High 6.6 - 10.5 fL AO Workflow SS Platelets (Bld) [#/Vol] 152 103/mcL Normal 150 - 450 10^3/mcL AO Workflow SS Potassium [Moles/Vol] 4.1 mmol/L Normal 3.5 - 5.1 mmol/L AO ADM SS Protein [Mass/Vol] 7.3 G/dL Normal 6.4 - 8.2 G/dL AO ADM SS RBC (Bld) [#/Vol] 4.67 106/mcL Normal 4.10 - 5.3 0 10^6/mcL AO Workflow SS Sodium [Moles/Vol] 140 mmol/L Normal 136 - 145 mmol/L AO ADM SS Urea nitrogen [Mass/Vol] 18 mg/dL Normal 7 - 18 mg/dL AO ADM SS Urea nitrogen/Creatinine [Mass ratio] 22 ratio Normal 7 - 27 ratio AO ADM SS WBC (Bld) [#/Vol] 5.7 103/mcL Normal 4.5 - 10.8 10^3/mcL AO Workflow SS LABORATORYOrdered By: Adonis Mccoy on 05-11-2025 Cholesterol [Mass/Vol] 212 mg/dL High 0 - 200 mg/dL AO ADM SS Comment on above: Interpretive Data: C holesterol Reference Interval: Less than 200 Desirable 200-239 Borderline high risk 240 and above High risk Cholesterol in HDL [Mass/Vol] 63 mg/dL High 40 - 60 mg/dL AO ADM SS Cholesterol in LDL [Mass/Vol] 132 mg/dL High 0 - 130 mg/dL AO ADM SS Triglyceride [Mass/Vol] 83 mg/dL Normal 0 - 150 mg/dL AO ADM SS Comment on above: Interpretive Data: T riglyceride Reference Interval: Less than 150 Normal 150-199 Borderline high risk 200-499 High risk 500 or higher Very high risk LIPIDon 05-11-2025 Cholesterol [Mass/Vol] 212 mg/dL High 0-200 [facility] Comment on above: Result Comment: Chol esterol Reference Interval: Less than 200 Desirable 200-239 Borderline high risk 240 and above High risk Performed By: #### G FR, ADIFF, CBC, LIPID, ANEU, CMP #### [facility] [address] [place], [place] [address] Cholesterol in HDL [Mass/Vol] 63 mg/dL High 40-60 [facility] Comment on above: Performed By: #### G FR, ADIFF, CBC, LIPID, ANEU, CMP #### [facility] [address] [place], [place] [address] Cholesterol in LDL [Mass/Vol] 132 mg/dL High 0-130 [facility] Comment on above: Performed By: #### G FR, ADIFF, CBC, LIPID, ANEU, CMP #### [place] [address] [place], [place] [address] Triglyceride [Mass/Vol] 83 mg/dL Normal 0-150 [facility] Comment on above: Result Comment: Trig lyceride Reference Interval: Less than 150 Normal 150-199 Borderline high risk 200-499 High risk 500 or higher Very high risk Performed By: #### G FR, ADIFF, CBC, LIPID, ANEU, CMP #### [place] [address] [place], [place] [address] LABORATORYOrdered By: Lucio Almaraz on 02-25-2025 Amphetamines Screen Ql (U) Negative *NA* (02/25/25 11:11 AM) Invalid Interpretation Code Negative AO ADM SS Barbiturates Screen Ql (U) Negative *NA* (02/25/25 11:11 AM) Invalid Interpretation Code Negative AO ADM SS Benzodiazepines Ql (U) Negative *NA* (02/25/25 11:11 AM) Invalid Interpretation Code Negative AO ADM SS Benzoylecgonine Screen Ql (U) Negative *NA* (02/25/25 11:11 AM) Invalid Interpretation Code Negative AO ADM SS Cannabinoids Screen Ql (U) Negative *NA* (02/25/25 11:11 AM) Invalid Interpretation Code Negative AO ADM SS Methadone Screen Ql (U) Negative *NA* (02/25/25 11:11 AM) Invalid Interpretation Code Negative AO ADM SS Opiates Screen Ql (U) Negative *NA* (02/25/25 11:11 AM) Invalid Interpretation Code Negative AO ADM SS Phencyclidine Ql (U) Negative *NA* (02/25/25 11:11 AM) Invalid Interpretation Code Negative AO ADM SS Urine Drugs screened: See Below 1 (02/25/25 11:11 AM) Normal AO Chemistry S Comment on above: Interpretive Data: T his drug screen is a presumptive screening only. No confirmation will be performed unless requested. Drugs screened include: Threshold Amphetamines/Methamphetamines 1,000 ng/mL Barbiturates 200 ng/mL Benzodiazepine metabolites 200 ng/mL Cannabinoids (THC metabolites) 50 ng/mL Cocaine 300 ng/mL Opiates 300 ng/mL Methadone 300 ng/mL Phencyclidine (PCP) 25 ng/mL Testing has been performed FOR MEDICAL PURPOSES ONLY. UDRUGon 02-25-2025 Amphetamine (u) Negative Normal Negative [facility] Comment on above: Performed By: #### U DRUG #### [place] [address] Barbiturate (u) Negative Normal Negative [facility] Comment on above: Performed By: #### U DRUG #### [place] [address] Benzodiazepine (u) Negative Normal Negative [facility] Comment on above: Performed By: #### U DRUG #### [place] [address] Cannabinoid (u) Negative Normal Negative [facility] Comment on above: Performed By: #### U DRUG #### [address] [address] Cocaine Ql (U) Negative Normal Negative [facility] Comment on above: Performed By: #### U DRUG #### [address] [address] Methadone Ql (U) Negative Normal [facility] Comment on above: Performed By: #### U DRUG #### [address] [address] Opiate (u) Negative Normal Negative [facility] Comment on above: Performed By: #### U DRUG #### [address] [address] PCP (u) Negative Normal Negative [facility] Comment on above: Performed By: #### U DRUG #### [address] [address] Urine Drugs screened: See Below Normal [facility] Comment on above: Result Comment: This drug screen is a presumptive screening only. No confirmation will be performed unless requested. Drugs screened include: Threshold Amphetamines/Methamphetamines 1,000 ng/mL Barbiturates 200 ng/mL Benzodiazepine metabolites 200 ng/mL Cannabinoids (THC metabolites) 50 ng/mL Cocaine 300 ng/mL Opiates 300 ng/mL Methadone 300 ng/mL Phencyclidine (PCP) 25 ng/mL Testing has been performed FOR MEDICAL PURPOSES ONLY. Performed By: #### U DRUG #### [address] [place] [address] [place], [place] [address] Final Surgical Pathology Rep [facility] 03-10-2024 Final Surgical Pathology Report . Pathology Reports Accession: Collected Date/Time: Received Date/Time: Pathologist: [id number] 03/09/2024 09:23 EDT 03/09/2024 13:52 EDT ESTEBNA CRAIG MD Final Surgical Pathology Report DIAGNOSIS: SIGMOID COLON, POLYPECTOMY: - HYPERPLASTIC POLYP CLINICAL INFORMATION: SCREENING Procedure: COLONOSCOPY WITH POLYPECTOMY Preoperative diagnosis: SCREENING Postoperative diagnosis: SCREENING SPECIMEN: A SIGMOID POLYP GROSS DESCRIPTION: All parts labelled with patient name and [id number] Received in formalin labeled sigmoid polyps at 25 are 6 em-pink tissue fragments measuring 0.2 to 0.3 cm. TS-1 Velma Ghotra, Grossing Diet Attendant/ Dr. Esteban Craig, Pathologist Dictated by Velma Ghotra MICROSCOPIC DESCRIPTION: The microscopic examination is performed, except in the case of Gross Only. Electronically Signed by Pathology Report verified by [facility] ESTEBAN CRAIG Sign out Date: 03/10/2024 10:59 Performing Lab: [facility], [address] [place] [address] Pathology Dept Disclaimer If ancillary studies were utilized, the following Laboratory Developed Test (LDT) disclaimer will apply: Under CLIA requirements, [facility] is qualified to perform high complexity testing. For all ancillary stains, positive and negative controls stain appropriately. Performance characteristics of immunohistochemical and chromogenic in-situ hybridization tests have been determined by [facility]. These tests are used for clinical purposes, They should not be regarded as investigational or for research. Normal [facility] (MD) MA MAMMOGRAM SCREENING BILAT ERAL W/TOMOon 12-05-2023 MA MAMMOGRAM SCREENING BILATERAL W/DOMINICK [facility] [address] [place], [place] [address] PROCEDURE FOR: RAZ TIRADO [address] 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 2D standard and 3D tomosynthesis combination imaging performed through both breasts in the MLO and CC projection. Computer aided detection was utilized in the interpretation of this exam. COMPARISON: 11/30/2022, 11/27/2021 HISTORY: Breast cancer screening. FINDINGS: BREAST DENSITY: Scattered fibroglandular tissue There are benign appearing calcifications in both breasts. There is a benign appearing unchanged density in the left breast. There are no significant masses or calcifications. IMPRESSION: No mammographic evidence of malignancy. Continued screening with annual mammograms is recommended. Meri Holtzick risk calculations, generated with the history provided, report this patient's 10 year risk and lifetime risk for developing breast cancer at 3.6% and 8.1%, respectively. Based on this assessment tool, if the patient's calculated lifetime risk is below 20%, then the patient is considered at average risk for developing breast cancer. If the patient's calculated lifetime risk is at or above 20%, then the patient is considered high risk for developing breast cancer and may be a candidate for supplemental breast MRI screening in addition to annual mammographic screening per the [employer]. BIRADS: MAMMOGRAM BI-RADS: 2: Benign finding RECALL: 1 year screening RECALL TYPE: mammo LETTER SENT: Normal BI-RADS 1 and 2 Interpreted by: Naga Larson MD Preliminary Report By: Naga Larson MD Electronically signed By Naga Larson MD Dictated Date: 12/05/2023 1:50:00 AM Prelim Date: 12/05/2023 2:04:55 AM Sign Date: 12/05/2023 2:04:55 AM Ordering Provider: EVELIO STEPHENS Pricing Analyst: NEVILLE REGALADO (Abel) (M) (CT) letter sent: Normal BI-RADS 1 and 2 Mammogram BI-RADS: 2 Benign Normal [facility] ([place]) .GFRon 12-04-2023 GFR 74 ml/min/1.73sqm Normal [facility] ([place]) Comment on above: Result Comment: GFR Population mean for , Non- Americans Ages 20-29 = 116 mL/min/1.73 sq.m. Ages 30-39 = 107 mL/min/1.73 sq.m. Ages 40-49 = 99 mL/min/1.73 sq.m. Ages 50-59 = 93 mL/min/1.73 sq.m. Ages 60-69 = 85 mL/min/1.73 sq.m. Ages 70+ = 75 mL/min/1.73 sq.m. Chronic Kidney Disease: Less than 60 mL/min/1.73 square meters End Stage Renal Disease: Less than 15 mL/min/1.73 square meters Performed By: #### U ANYI, VIDH, GFR, CMP, LIPID #### [place] [address] [address] GFR Non- 61 ml/min/1.73sqm Normal [facility] ([place]) Comment on above: Result Comment: GFR Population mean for , Non- Americans Ages 20-29 = 116 mL/min/1.73 sq.m. Ages 30-39 = 107 mL/min/1.73 sq.m. Ages 40-49 = 99 mL/min/1.73 sq.m. Ages 50-59 = 93 mL/min/1.73 sq.m. Ages 60-69 = 85 mL/min/1.73 sq.m. Ages 70+ = 75 mL/min/1.73 sq.m. Chronic Kidney Disease: Less than 60 mL/min/1.73 square meters End Stage Renal Disease: Less than 15 mL/min/1.73 square meters Performed By: #### U AYNI, VIDH, GFR, CMP, LIPID #### [address] [address] CMPon 12-04-2023 Albumin Level 3.9 G/dL Normal 3.4-4.8 [facility] ([place]) Comment on above: Performed By: #### U ANYI, VIDH, GFR, CMP, LIPID #### [address] [address] Albumin/Globulin [Mass ratio] 1.3 {ratio} Normal 1.1-2.5 [facility] ([place]) Comment on above: Performed By: #### U ANYI, VIDH, GFR, CMP, LIPID #### [address] [address] ALP [Catalytic activity/Vol] 83 U/L Normal 40-135 [facility] ([place]) Comment on above: Performed By: #### U ANYI, VIDH, GFR, CMP, LIPID #### [address] [address] ALT [Catalytic activity/Vol] 54 U/L Normal 14-59 [facility] ([place]) Comment on above: Performed By: #### U ANYI, VIDH, GFR, CMP, LIPID #### [address] [address] AST [Catalytic activity/Vol] 27 U/L Normal 10-40 [facility] ([place]) Comment on above: Performed By: #### U ANYI, VIDH, GFR, CMP, LIPID #### [address] [address] Bili Total 0.7 mg/dL Normal 0.2-1.0 [facility] ([place]) Comment on above: Result Comment: Use of this assay is not recommended for patients undergoing treatment with eltrombopag due to the potential for falsely elevated results. Performed By: #### U ANYI, VIDH, GFR, CMP, LIPID #### [address] [address] BUN/Creatinine Ratio 14 ratio Normal 7-27 [facility] ([place]) Comment on above: Performed By: #### U ANYI, VIDH, GFR, CMP, LIPID #### [address] [address] Calcium [Mass/Vol] 9.5 mg/dL Normal 8.4-10.2 [facility] ([place]) Comment on above: Performed By: #### U ANYI, VIDH, GFR, CMP, LIPID #### [address] [address] Chloride [Moles/Vol] 104 mmol/L Normal 98-107 [facility] ([place]) Comment on above: Performed By: #### U ANYI, VIDH, GFR, CMP, LIPID #### [address] [address] CO2 [Moles/Vol] 29 mmol/L Normal 23-31 [facility] ([place]) Comment on above: Performed By: #### U ANYI, VIDH, GFR, CMP, LIPID #### [address] [address] Creatinine [Mass/Vol] 0.93 mg/dL Normal 0.55-1.02 [facility] ([place]) Comment on above: Performed By: #### U ANYI, VIDH, GFR, CMP, LIPID #### [address] [address] Electrolyte Balance 9.0 mEq/L Normal 4.0-15.0 [facility] ([place]) Comment on above: Performed By: #### U ANYI, VIDH, GFR, CMP, LIPID #### [address] [address] Globulin 3.0 G/dL Normal [facility] ([place]) Comment on above: Performed By: #### U ANYI, VIDH, GFR, CMP, LIPID #### [address] [address] Glucose [Mass/Vol] 94 mg/dL Normal 80-115 [facility] ([place]) Comment on above: Performed By: #### U ANYI, VIDH, GFR, CMP, LIPID #### [address] [address] Potassium [Moles/Vol] 4.5 mmol/L Normal 3.5-5.1 [facility] ([place]) Comment on above: Performed By: #### U ANYI, VIDH, GFR, CMP, LIPID #### [address] [address] Sodium [Moles/Vol] 142 mmol/L Normal 136-145 [facility] ([place]) Comment on above: Performed By: #### U ANYI, VIDH, GFR, CMP, LIPID #### [address] [address] Total Protein 6.9 G/dL Normal 6.4-8.2 [facility] ([place]) Comment on above: Performed By: #### U ANYI, VIDH, GFR, CMP, LIPID #### [address] [address] Urea nitrogen [Mass/Vol] 13 mg/dL Normal 7-18 [facility] ([place]) Comment on above: Performed By: #### U ANYI, VIDH, GFR, CMP, LIPID #### [address] [address] LABORATORYOrdered By: SYSTEM SYSTEM on 12-04-2023 25-hydroxyvitamin D3 [Mass/Vol] 67.3 ng/mL Invalid Interpretation Code AO ADM SS Comment on above: Interpretive Data: I nterpretive Values Based on Total 25(OH) Vitamin D: Deficient <20 ng/mL Insufficient 20 - <30 ng/mL Sufficient 30-100 ng/mL Albumin BCP dye [Mass/Vol] 3.9 G/dL Normal 3.4 - 4.8 G/dL AO ADM SS Albumin/Globulin [Mass ratio] 1.3 {ratio} Normal 1.1 - 2.5 ratio AO ADM SS ALP [Catalytic activity/Vol] 83 U/L Normal 40 - 135 U/L AO ADM SS ALT With P-5'-P [Catalytic activity/Vol] 54 U/L Normal 14 - 59 U/L AO ADM SS AST With P-5'-P [Catalytic activity/Vol] 27 U/L Normal 10 - 40 U/L AO ADM SS Bilirubin [Mass/Vol] 0.7 mg/dL Normal 0.2 - 1 .0 mg/dL AO ADM SS Comment on above: Interpretive Data: U se of this assay is not recommended for patients undergoing treatment with eltrombopag due to the potential for falsely elevated results. Calcium [Mass/Vol] 9.5 mg/dL Normal 8.4 - 10. 2 mg/dL AO ADM SS Chloride [Moles/Vol] 104 mmol/L Normal 98 - 10 7 mmol/L AO ADM SS CO2 [Moles/Vol] 29 mmol/L Normal 23 - 31 mmol/L AO ADM SS Creatinine [Mass/Vol] 0.93 mg/dL Normal 0.55 - 1.02 mg/dL AO ADM SS Electrolyte Balance 9.0 mEq/L Normal 4.0 - 15 .0 mEq/L AO ADM SS GFR/1.73 sq M.predicted among blacks MDRD (S/P/Bld) [Vol rate/Area] 74 ml/min/1.73sqm Invalid Interpretation Code AO Chemistry S Comment on above: Interpretive Data: GFR Population mean for , Non- Americans Ages 20-29 = 116 mL/min/1.73 sq.m. Ages 30-39 = 107 mL/min/1.73 sq.m. Ages 40-49 = 99 mL/min/1.73 sq.m. Ages 50-59 = 93 mL/min/1.73 sq.m. Ages 60-69 = 85 mL/min/1.73 sq.m. Ages 70+ = 75 mL/min/1.73 sq.m. Chronic Kidney Disease: Less than 60 mL/min/1.73 square meters End Stage Renal Disease: Less than 15 mL/min/1.73 square meters GFR/1.73 sq M.predicted among non-blacks MDRD (S/P/Bld) [Vol rate/Area] 61 ml/min/1.73sqm Invalid Interpretation Code AO Chemistry S Comment on above: Interpretive Data: GFR Population mean for , Non- Americans Ages 20-29 = 116 mL/min/1.73 sq.m. Ages 30-39 = 107 mL/min/1.73 sq.m. Ages 40-49 = 99 mL/min/1.73 sq.m. Ages 50-59 = 93 mL/min/1.73 sq.m. Ages 60-69 = 85 mL/min/1.73 sq.m. Ages 70+ = 75 mL/min/1.73 sq.m. Chronic Kidney Disease: Less than 60 mL/min/1.73 square meters End Stage Renal Disease: Less than 15 mL/min/1.73 square meters Globulin 3.0 G/dL Invalid Interpretation Code AO ADM SS Glucose [Mass/Vol] 94 mg/dL Normal 80 - 115 mg/dL AO ADM SS Potassium [Moles/Vol] 4.5 mmol/L Normal 3.5 - 5.1 mmol/L AO ADM SS Protein [Mass/Vol] 6.9 G/dL Normal 6.4 - 8.2 G/dL AO ADM SS Sodium [Moles/Vol] 142 mmol/L Normal 136 - 145 mmol/L AO ADM SS Urea nitrogen [Mass/Vol] 13 mg/dL Normal 7 - 18 mg/dL AO ADM SS Urea nitrogen/Creatinine [Mass ratio] 14 ratio Normal 7 - 27 ratio AO ADM SS Uric Acid Lvl 6.1 mg/dL Normal 2.6 - 6.2 mg/dL AO ADM SS LABORATORYOrdered By: Lisa Nguyen on 12-04-2023 Cholesterol [Mass/Vol] 205 mg/dL High 0 - 200 mg/dL AO ADM SS Comment on above: Interpretive Data: C holesterol Reference Interval: Less than 200 Desirable 200-239 Borderline high risk 240 and above High risk Cholesterol in HDL [Mass/Vol] 74 mg/dL High 40 - 60 mg/dL AO ADM SS Cholesterol in LDL [Mass/Vol] 116 mg/dL Normal 0 - 130 mg/dL AO ADM SS Triglyceride [Mass/Vol] 75 mg/dL Normal 0 - 150 mg/dL AO ADM SS Comment on above: Interpretive Data: T riglyceride Reference Interval: Less than 150 Normal 150-199 Borderline high risk 200-499 High risk 500 or higher Very high risk LIPIDon 12-04-2023 Cholesterol [Mass/Vol] 205 mg/dL High 0-200 [facility] ([place]) Comment on above: Result Comment: Chol esterol Reference Interval: Less than 200 Desirable 200-239 Borderline high risk 240 and above High risk Performed By: #### U ANYI, VIDH, GFR, CMP, LIPID #### [address] [address] Cholesterol in HDL [Mass/Vol] 74 mg/dL High 40-60 [facility] ([place]) Comment on above: Performed By: #### U ANYI, VIDH, GFR, CMP, LIPID #### [address] [address] Cholesterol in LDL [Mass/Vol] 116 mg/dL Normal 0-130 [facility] ([place]) Comment on above: Performed By: #### U ANYI, VIDH, GFR, CMP, LIPID #### [address] [address] Triglyceride [Mass/Vol] 75 mg/dL Normal 0-150 [facility] ([place]) Comment on above: Result Comment: Trig lyceride Reference Interval: Less than 150 Normal 150-199 Borderline high risk 200-499 High risk 500 or higher Very high risk Performed By: #### U ANYI, VIDH, GFR, CMP, LIPID #### [address] [address] URICon 12-04-2023 Uric Acid Lvl 6.1 mg/dL Normal 2.6-6.2 [facility] ([place]) Comment on above: Performed By: #### U ANYI, VIDH, GFR, CMP, LIPID #### [place] [address] VIDHon 12-04-2023 Vit. D 25-Hydroxy 67.3 ng/mL Normal [facility] ([place]) Comment on above: Result Comment: Inte rpretive Values Based on Total 25(OH) Vitamin D: Deficient <20 ng/mL Insufficient 20 - <30 ng/mL Sufficient 30-100 ng/mL Performed By: #### U ANYI, VIDH, GFR, CMP, LIPID #### [address] [address] Final Surgical Pathology Rep [facility] 07-24-2023 Final Surgical Pathology Report . Pathology Reports Accession: Collected Date/Time: Received Date/Time: Pathologist: [id number] 07/22/2023 10:40 EDT 07/23/2023 09:00 EDT NEGIN LOPES MD Final Surgical Pathology Report DIAGNOSIS: SOFT TISSUE, RIGHT UPPER ABDOMEN WALL, EXCISION: - MATURE ADIPOSE TISSUE, CONSISTENT WITH LIPOMA CLINICAL INFORMATION: UMBILICAL HERNIA Procedure: OPEN UMBILICAL HERNIA REPAIR AND EXCISION LIPOMA ABDOMEN, RIGHT UPPER ABDOMINAL WALL Preoperative diagnosis: UMBILICA HERNIA, AND LIPOMA RIGHT UPPER QUADRANT Postoperative diagnosis: UMBILICA HERNIA, AND LIPOMA RIGHT UPPER QUADRANT SPECIMEN: RIGHT UPPER ABDOMINAL WALL LIPOMA GROSS DESCRIPTION: A. Received in formalin, labeled with the patients name, Case # [id number], and right upper abdomen wall lipoma is a yellow lobulated portion of adipose tissue measuring 5 x 4 x 2.5 cm. Tissue is sectioned to reveal yellow, glistening cut surfaces. RS -1 Dictated by DENNY WHEELER MICROSCOPIC DESCRIPTION: The microscopic examination is performed, except in the case of Gross Only. Electronically Signed by Pathology Report verified by [facility] NEGIN LOPES Sign out Date: 07/24/2023 11:16 Performing Lab: [facility], [address] [place] [address] Pathology Dept Disclaimer If ancillary studies were utilized, the following Laboratory Developed Test (LDT) disclaimer will apply: Under CLIA requirements, [facility] is qualified to perform high complexity testing. For all ancillary stains, positive and negative controls stain appropriately. Performance characteristics of immunohistochemical and chromogenic in-situ hybridization tests have been determined by [facility]. These tests are used for clinical purposes, They should not be regarded as investigational or for research. Normal [facility] ([place]) .Auto Diffon 07-10-2023 Basophil, Absolute 0.0 10 3/mcL Normal 0.0-0.2 [facility] ([place]) Comment on above: Performed By: #### A JESS, GFR, CBC, ADIFF, BMP #### [address] [address] Basophils/100 WBC (Bld) 0.4 % Normal 0.0-2.5 [facility] ([place]) Comment on above: Performed By: #### A JESS, GFR, CBC, ADIFF, BMP #### [place] [address] [place], [place] [address] Eosinophil, Absolute 0.2 10 3/mcL Normal 0.0-0.4 [facility] ([place]) Comment on above: Performed By: #### A JESS, GFR, CBC, ADIFF, BMP #### [address] [address] Eosinophils/100 WBC (Bld) 2.6 % Normal 0.0-7.0 [facility] ([place]) Comment on above: Performed By: #### A JESS, GFR, CBC, ADIFF, BMP #### [address] [address] Lymphocyte, Absolute 1.6 10 3/mcL Normal 0.8-3.9 [facility] ([place]) Comment on above: Performed By: #### A JESS, GFR, CBC, ADIFF, BMP #### [address] [address] Lymphocytes/100 WBC (Bld) 23.3 % Normal 10.0-50.0 [facility] ([place]) Comment on above: Performed By: #### A JESS, GFR, CBC, ADIFF, BMP #### [address] [address] Monocyte, Absolute 0.9 10 3/mcL Normal 0.2-1.0 [facility] ([place]) Comment on above: Performed By: #### A JESS, GFR, CBC, ADIFF, BMP #### [address] [address] Monocytes/100 WBC (Bld) 13.1 % High 1.7-13.0 [facility] ([place]) Comment on above: Performed By: #### A JESS, GFR, CBC, ADIFF, BMP #### [address] [address] Neutrophils/100 WBC (Bld) 60.6 % Normal 37.0-80.0 [facility] ([place]) Comment on above: Performed By: #### A JESS, GFR, CBC, ADIFF, BMP #### [address] [address] .GFRon 07-10-2023 GFR 88 ml/min/1.73sqm Normal [facility] ([place]) Comment on above: Result Comment: GFR Population mean for , Non- Americans Ages 20-29 = 116 mL/min/1.73 sq.m. Ages 30-39 = 107 mL/min/1.73 sq.m. Ages 40-49 = 99 mL/min/1.73 sq.m. Ages 50-59 = 93 mL/min/1.73 sq.m. Ages 60-69 = 85 mL/min/1.73 sq.m. Ages 70+ = 75 mL/min/1.73 sq.m. Chronic Kidney Disease: Less than 60 mL/min/1.73 square meters End Stage Renal Disease: Less than 15 mL/min/1.73 square meters Performed By: #### A JESS, GFR, CBC, ADIFF, BMP ####[id number] [place], [place] [address] GFR Non- 72 ml/min/1.73sqm Normal [facility] ([place]) Comment on above: Result Comment: GFR Population mean for , Non- Americans Ages 20-29 = 116 mL/min/1.73 sq.m. Ages 30-39 = 107 mL/min/1.73 sq.m. Ages 40-49 = 99 mL/min/1.73 sq.m. Ages 50-59 = 93 mL/min/1.73 sq.m. Ages 60-69 = 85 mL/min/1.73 sq.m. Ages 70+ = 75 mL/min/1.73 sq.m. Chronic Kidney Disease: Less than 60 mL/min/1.73 square meters End Stage Renal Disease: Less than 15 mL/min/1.73 square meters Performed By: #### A JESS, GFR, CBC, ADIFF, BMP ####[address] [place], [place] [address] .NEUABSon 07-10-2023 Neutrophil, Absolute 4.2 10 3/mcL Normal 2.9-6.2 [facility] ([place]) Comment on above: Performed By: #### A JESS, GFR, CBC, ADIFF, BMP ####[id number] [place], [place] [address] BMPon 07-10-2023 BUN/Creatinine Ratio 14 ratio Normal 7-27 [facility] ([place]) Comment on above: Performed By: #### A JESS, GFR, CBC, ADIFF, BMP ####[address] [place], [place] [address] Calcium [Mass/Vol] 8.9 mg/dL Normal 8.4-10.2 [facility] ([place]) Comment on above: Performed By: #### A JESS, GFR, CBC, ADIFF, BMP ####[id number] [address] Chloride [Moles/Vol] 100 mmol/L Normal 98-107 [facility] ([place]) Comment on above: Performed By: #### A JESS, GFR, CBC, ADIFF, BMP ####[id number] [place], [place] [address] CO2 [Moles/Vol] 27 mmol/L Normal 23-31 [facility] ([place]) Comment on above: Performed By: #### A JESS, GFR, CBC, ADIFF, BMP ####[id number] [address] Creatinine [Mass/Vol] 0.80 mg/dL Normal 0.55-1.02 [facility] ([place]) Comment on above: Performed By: #### A JESS, GFR, CBC, ADIFF, BMP ####[id number] [place], [place] [address] Electrolyte Balance 8.0 mEq/L Normal 4.0-15.0 [facility] ([place]) Comment on above: Performed By: #### A JESS, GFR, CBC, ADIFF, BMP ####[address] [address] Glucose [Mass/Vol] 90 mg/dL Normal 80-115 [facility] ([place]) Comment on above: Performed By: #### A JESS, GFR, CBC, ADIFF, BMP ####[address] [place], [place] [address] Potassium [Moles/Vol] 4.0 mmol/L Normal 3.5-5.1 [facility] ([place]) Comment on above: Performed By: #### A JESS, GFR, CBC, ADIFF, BMP ####[address] [address] Sodium [Moles/Vol] 135 mmol/L Low 136-145 [facility] ([place]) Comment on above: Performed By: #### A JESS, GFR, CBC, ADIFF, BMP ####[address] [address] Urea nitrogen [Mass/Vol] 11 mg/dL Normal 7-18 [facility] ([place]) Comment on above: Performed By: #### A JESS, GFR, CBC, ADIFF, BMP ####[address] [address] CBCon 07-10-2023 Erythrocyte distribution width (RBC) [Ratio] 12.8 % Normal 11.5-14.5 [facility] ([place]) Comment on above: Order Comment: Pre-A dmission Testing Performed By: #### A JESS, GFR, CBC, ADIFF, BMP #### [address] [address] Hematocrit (Bld) [Volume fraction] 40.1 % Normal 37.0-47.0 [facility] ([place]) Comment on above: Order Comment: Pre-A dmission Testing Performed By: #### A JESS, GFR, CBC, ADIFF, BMP #### [address] [address] Hgb 13.8 G/dL Normal 12.0-16.0 [facility] ([place]) Comment on above: Order Comment: Pre-A dmission Testing Performed By: #### A JESS, GFR, CBC, ADIFF, BMP #### [address] [address] MCH (RBC) [Entitic mass] 33.4 pg High 27.0-31.2 [facility] ([place]) Comment on above: Order Comment: Pre-A dmission Testing Performed By: #### A JESS, GFR, CBC, ADIFF, BMP #### [address] [address] MCHC 34.4 G/dL Normal 33.0-37.0 [facility] ([place]) Comment on above: Order Comment: Pre-A dmission Testing Performed By: #### A JESS, GFR, CBC, ADIFF, BMP #### [address] [address] MCV (RBC) [Entitic vol] 97.2 fL High 80.0-94.0 [facility] ([place]) Comment on above: Order Comment: Pre-A dmission Testing Performed By: #### A JESS, GFR, CBC, ADIFF, BMP #### [address] [address] Platelet 113 10 3/mcL Low 130-400 [facility] ([place]) Comment on above: Order Comment: Pre-A dmission Testing Performed By: #### A JESS, GFR, CBC, ADIFF, BMP #### [address] [address] Platelet mean volume (Bld) [Entitic vol] 9.0 fL Normal 7.4-10.4 [facility] ([place]) Comment on above: Order Comment: Pre-A dmission Testing Performed By: #### A JESS, GFR, CBC, ADIFF, BMP #### [address] [address] RBC 4.13 10 6/mcL Low 4.20-5.40 [facility] ([place]) Comment on above: Order Comment: Pre-A dmission Testing Performed By: #### A JESS, GFR, CBC, ADIFF, BMP #### [address] [address] WBC 6.9 10 3/mcL Normal 4.6-10.8 [facility] ([place]) Comment on above: Order Comment: Pre-A dmission Testing Performed By: #### A JESS, GFR, CBC, ADIFF, BMP #### [address] [address] LABORATORYOrdered By: SYSTEM SYSTEM on 11-30-2022 Albumin BCP dye [Mass/Vol] 4.2 G/dL Invalid Interpretation Code 3.4 - 4.8 G/dL AO ADM SS Albumin/Globulin [Mass ratio] 1.4 {ratio} Invalid Interpretation Code 1.1 - 2.5 ratio AO ADM SS ALP [Catalytic activity/Vol] 88 U/L Invalid Interpretation Code 40 - 135 U/L AO ADM SS ALT With P-5'-P [Catalytic activity/Vol] 69 U/L Invalid Interpretation Code 14 - 59 U/L AO ADM SS AST With P-5'-P [Catalytic activity/Vol] 41 U/L Invalid Interpretation Code 10 - 40 U/L AO ADM SS Bilirubin [Mass/Vol] 0.6 mg/dL Invalid Interpretation Code 0.2 - 1.0 mg/dL AO ADM SS Calcium [Mass/Vol] 9.5 mg/dL Invalid Interpretation Code 8.4 - 10.2 mg/dL AO ADM SS Chloride [Moles/Vol] 103 mmol/L Invalid Interpretation Code 98 - 107 mmol/L AO ADM SS CO2 [Moles/Vol] 29 mmol/L Invalid Interpretation Code 23 - 31 mmol/L AO ADM SS Creatinine [Mass/Vol] 0.91 mg/dL Invalid Interpretation Code 0.55 - 1.02 mg/dL AO ADM SS Electrolyte Balance 9.0 mEq/L Invalid Interpretation Code 4.0 - 15.0 mEq/L AO ADM SS GFR 76 ml/min/1.73sqm Invalid Interpretation Code AO Chemistry S GFR Non- 63 ml/min/1.73sqm Invalid Interpretation Code AO Chemistry S Globulin 3.0 G/dL Invalid Interpretation Code AO ADM SS Glucose [Mass/Vol] 100 mg/dL Invalid Interpretation Code 80 - 115 mg/dL AO ADM SS Potassium [Moles/Vol] 4.0 mmol/L Invalid Interpretation Code 3.5 - 5.1 mmol/L AO ADM SS Protein [Mass/Vol] 7.2 G/dL Invalid Interpretation Code 6.4 - 8.2 G/dL AO ADM SS Sodium [Moles/Vol] 141 mmol/L Invalid Interpretation Code 136 - 145 mmol/L AO ADM SS Urea nitrogen [Mass/Vol] 16 mg/dL Invalid Interpretation Code 7 - 18 mg/dL AO ADM SS Urea nitrogen/Creatinine [Mass ratio] 18 ratio Invalid Interpretation Code 7 - 27 ratio AO ADM SS Uric Acid Lvl 7.0 mg/dL Invalid Interpretation Code 2.6 - 6.2 mg/dL AO ADM SS Vit. D 25-Hydroxy 56.8 ng/mL Invalid Interpretation Code AO ADM SS LABORATORYOrdered By: Roxana Alfredo on 11-30-2022 Cholesterol [Mass/Vol] 215 mg/dL Invalid Interpretation Code 0 - 200 mg/dL AO ADM SS Cholesterol in HDL [Mass/Vol] 67 mg/dL Invalid Interpretation Code 40 - 60 mg/dL AO ADM SS Cholesterol in LDL [Mass/Vol] 129 mg/dL Invalid Interpretation Code 0 - 130 mg/dL AO ADM SS Triglyceride [Mass/Vol] 95 mg/dL Invalid Interpretation Code 0 - 150 mg/dL AO ADM SS LABORATORYOrdered By: Roxana Alfredo on 11-27-2021 Albumin BCP dye [Mass/Vol] 4.2 G/dL Invalid Interpretation Code 3.4 - 4.8 G/dL AO ADM SS Albumin/Globulin [Mass ratio] 1.6 {ratio} Invalid Interpretation Code 1.1 - 2.5 ratio AO ADM SS ALP [Catalytic activity/Vol] 84 U/L Invalid Interpretation Code 40 - 135 U/L AO ADM SS ALT With P-5'-P [Catalytic activity/Vol] 62 U/L Invalid Interpretation Code 14 - 59 U/L AO ADM SS AST With P-5'-P [Catalytic activity/Vol] 36 U/L Invalid Interpretation Code 10 - 40 U/L AO ADM SS Bilirubin [Mass/Vol] 0.7 mg/dL Invalid Interpretation Code 0.2 - 1.0 mg/dL AO ADM SS Calcium [Mass/Vol] 9.7 mg/dL Invalid Interpretation Code 8.4 - 10.2 mg/dL AO ADM SS Chloride [Moles/Vol] 104 mmol/L Invalid Interpretation Code 98 - 107 mmol/L AO ADM SS Cholesterol [Mass/Vol] 222 mg/dL Invalid Interpretation Code 0 - 200 mg/dL AO ADM SS Cholesterol in HDL [Mass/Vol] 65 mg/dL Invalid Interpretation Code 40 - 60 mg/dL AO ADM SS Cholesterol in LDL [Mass/Vol] 137 mg/dL Invalid Interpretation Code 0 - 130 mg/dL AO ADM SS CO2 [Moles/Vol] 29 mmol/L Invalid Interpretation Code 23 - 31 mmol/L AO ADM SS Creatinine [Mass/Vol] 0.89 mg/dL Invalid Interpretation Code 0.55 - 1.02 mg/dL AO ADM SS Electrolyte Balance 10.0 mEq/L Invalid Interpretation Code 4.0 - 15.0 mEq/L AO ADM SS Globulin 2.7 G/dL Invalid Interpretation Code AO ADM SS Glucose [Mass/Vol] 92 mg/dL Invalid Interpretation Code 80 - 115 mg/dL AO ADM SS Potassium [Moles/Vol] 4.5 mmol/L Invalid Interpretation Code 3.5 - 5.1 mmol/L AO ADM SS Protein [Mass/Vol] 6.9 G/dL Invalid Interpretation Code 6.4 - 8.2 G/dL AO ADM SS Sodium [Moles/Vol] 143 mmol/L Invalid Interpretation Code 136 - 145 mmol/L AO ADM SS Triglyceride [Mass/Vol] 98 mg/dL Invalid Interpretation Code 0 - 150 mg/dL AO ADM SS Urea nitrogen [Mass/Vol] 14 mg/dL Invalid Interpretation Code 7 - 18 mg/dL AO ADM SS Urea nitrogen/Creatinine [Mass ratio] 16 ratio Invalid Interpretation Code 7 - 27 ratio AO ADM SS Vit. D 25-Hydroxy 65.4 ng/mL Invalid Interpretation Code AO ADM SS LABORATORYOrdered By: Lisa Nguyen on 11-27-2021 Basophil, Absolute 0.00 103/mcL Invalid Interpretation Code 0.00 - 0.19 10^3/mcL AO Auto Heme SS Basophils/100 WBC (Bld) 0.7 % Invalid Interpretation Code 0.0 - 2.5 % AO Auto Heme SS Eosinophil, Absolute 0.20 103/mcL Invalid Interpretation Code 0.00 - 0.40 10^3/mcL AO Auto Heme SS Eosinophils/100 WBC (Bld) 4.0 % Invalid Interpretation Code 0.0 - 7.0 % AO Auto Heme SS Erythrocyte distribution width (RBC) [Ratio] 11.6 % Invalid Interpretation Code 11.5 - 14.5 % AO Auto Heme SS Hematocrit (Bld) [Volume fraction] 40.0 % Invalid Interpretation Code 37.0 - 47.0 % AO Auto Heme SS Hemoglobin (Bld) [Mass/Vol] 14.0 G/dL Invalid Interpretation Code 12.0 - 16.0 G/dL AO Auto Heme SS Lymphocyte, Absolute 2.00 103/mcL Invalid Interpretation Code 0.77 - 3.85 10^3/mcL AO Auto Heme SS Lymphocytes/100 WBC (Bld) 32.4 % Invalid Interpretation Code 10.0 - 50.0 % AO Auto Heme SS MCH (RBC) [Entitic mass] 32.7 pg Invalid Interpretation Code 27.0 - 31.2 pg AO Auto Heme SS MCHC (RBC) [Mass/Vol] 35.1 G/dL Invalid Interpretation Code 33.0 - 37.0 G/dL AO Auto Heme SS MCV (RBC) [Entitic vol] 93.3 fL Invalid Interpretation Code 80.0 - 94.0 fL AO Auto Heme SS Monocyte, Absolute 0.60 103/mcL Invalid Interpretation Code 0.15 - 1.00 10^3/mcL AO Auto Heme SS Monocytes/100 WBC (Bld) 9.1 % Invalid Interpretation Code 1.7 - 13.0 % AO Auto Heme SS Neutrophil, Absolute 3.20 103/mcL Invalid Interpretation Code 2.85 - 6.16 10^3/mcL AO Auto Heme SS Neutrophils/100 WBC (Bld) 53.8 % Invalid Interpretation Code 37.0 - 80.0 % AO Auto Heme SS Platelet mean volume (Bld) [Entitic vol] 10.9 fL Invalid Interpretation Code 7.4 - 10.4 fL AO Auto Heme SS Platelets (Bld) [#/Vol] 170 103/mcL Invalid Interpretation Code 130 - 400 10^3/mcL AO Auto Heme SS RBC (Bld) [#/Vol] 4.29 106/mcL Invalid Interpretation Code 4.20 - 5.40 10^6/mcL AO Auto Heme SS WBC (Bld) [#/Vol] 6.00 103/mcL Invalid Interpretation Code 4.60 - 10.80 10^3/mcL AO Auto Heme SS LABORATORYOrdered By: SYSTEM SYSTEM on 11-27-2021 GFR 78 ml/min/1.73sqm Invalid Interpretation Code AO Chemistry S GFR Non- 64 ml/min/1.73sqm Invalid Interpretation Code AO Chemistry S Inj/Asp Anibal Jt Should/Hip/Kn eeon 04-15-2020 [facility] [address] [place] [address] Inj/Asp Anibal Jt Should/Hip/Knee MR#: [id number] Acct: [id number] Name: RAZ TIRADO Rep #: [id number] : 1960 F 59 From: Flaco Roblero MD PCP: Evelio Stephens, [employer]C Status: REG CLI Study: Inj/Asp Anibal Jt Should/Hip/Knee Date of Exam: 0 04/15/20 Exam# [id number] Ordering Dr: Robert Galvin MD STUDY: RIGHT HIP INJECTION REASON FOR EXAM: Female, 59 years old. Severe pain, decreased range of motion RADIATION DOSAGE (If Supplied By Facility): CTDIvol = ( ) mGy, DLP = ( ) mGycm. Individualized dose optimization techniques were used for this CT.? FLUOROSCOPY TIME (if supplied): ( 30 ) seconds TECHNIQUE: Fluoroscopically guided right hip injection COMPARISON: None. FINDINGS: After informed consent was obtained, the patient was placed on the fluoroscopic table in the supine position, and an appropriate site for right hip injection was determined. The area was prepped and draped in a sterile manner, and 2% Xylocaine was used as local anesthetic. Under fluoroscopic guidance, a 22-gauge spinal needle was advanced into the right hip capsule without difficulty. Patient was injected with a 4 mL solution of betamethasone and Xylocaine. Patient tolerated the procedure well with no immediate complications RAD/Inj/Asp Anibal Jt Should/Hip/Knee IMPRESSION: Successful fluoroscopically guided right hip injection Electronically Signed: Christiano Roblero MD at 13:56 EDT , Service support , CC: KIRT Stephens; Dr. Robert Galvin MD Bag Bundler: Signed Normal [facility] Vital Signs Date Time Vital Sign Value Performing Clinician Faci lity 03-09-2024 09:47-0400 Diastolic Blood Pressure Non-Invasive 86 mm[Hg] DR WILLIAM DALTON MD [facility] 03-09-2024 09:47-0400 Heart rate 82 /min DR WILLIAM DALTON MD [facility] 03-09-2024 09:47-0400 Respiratory rate 23 /min DR WILLIAM DALTON MD [facility] 03-09-2024 09:47-0400 Systolic Blood Pressure Non-Invasive 124 mm[Hg] DR WILLIAM DALTON MD [facility] 03-09-2024 09:37-0400 Diastolic Blood Pressure Non-Invasive 78 mm[Hg] DR WILLIAM DALTON MD [facility] 03-09-2024 09:37-0400 Heart rate 86 /min DR WILLIAM DALTON MD [facility] 03-09-2024 09:37-0400 Respiratory rate 22 /min DR WILLIAM DALTON MD [facility] 03-09-2024 09:37-0400 Systolic Blood Pressure Non-Invasive 113 mm[Hg] DR WILLIAM DALTON MD [facility] 03-09-2024 09:29-0400 Body temperature 97.34 [degF] DR WILLIAM DALTON MD [facility] 03-09-2024 09:29-0400 Diastolic Blood Pressure Non-Invasive 76 mm[Hg] DR WILLIAM DALTON MD [facility] 03-09-2024 09:29-0400 Heart rate 82 /min DR WILLIAM DALTON MD [facility] 03-09-2024 09:29-0400 Respiratory rate 17 /min DR WILLIAM DALTON MD [facility] 03-09-2024 09:29-0400 Systolic Blood Pressure Non-Invasive 116 mm[Hg] DR WILLIAM DALTON MD [facility] 03-09-2024 09:25-0400 Heart rate 88 /min DR WILLIAM DALTON MD [facility] 03-09-2024 09:25-0400 Respiratory Rate - Anes 20 br/min DR WILLIAM DALTON MD [facility] 03-09-2024 09:20-0400 Heart rate 91 /min DR WILLIAM DALTON MD [facility] 03-09-2024 09:20-0400 Respiratory Rate - Anes 25 br/min DR WILLIAM DALTON MD [facility] 03-09-2024 09:15-0400 Heart rate 75 /min DR WILLIAM DALTON MD [facility] 03-09-2024 09:15-0400 Respiratory Rate - Anes 25 br/min DR WILLIAM DALTON MD [facility] 03-09-2024 08:30-0400 Body height 165.[address] WILLIAM DALTON MD [facility] 03-09-2024 08:30-0400 Body weight 90.[address] WILLIAM DALTON MD [facility] 03-09-2024 08:30-0400 Body weight 32.93 kg/m2 DR WILLIAM DALTON MD [facility] 03-09-2024 08:21-0400 Body height 165.[address] WILLIAM DALTON MD [facility] 03-09-2024 08:21-0400 Body temperature 96.98 [degF] DR WILLIAM DALTON MD [facility] 03-09-2024 08:21-0400 Body weight 90.[address] WILLIAM DALTON MD [facility] 07-22-2023 12:15-0400 Diastolic Blood Pressure Non-Invasive 77 1 NGOC JONES MD [facility] 07-22-2023 12:15-0400 Heart rate 74 /min NGOC JONES MD [facility] 07-22-2023 12:15-0400 Systolic Blood Pressure Non-Invasive 131 1 NGOC JONES MD [facility] 07-22-2023 11:50-0400 Diastolic Blood Pressure Non-Invasive 79 1 NGOC JONES MD [facility] 07-22-2023 11:50-0400 Heart rate 73 /min NGOC JONES MD [facility] 07-22-2023 11:50-0400 Systolic Blood Pressure Non-Invasive 122 1 NGOC JONES MD [facility] 07-22-2023 11:30-0400 Diastolic Blood Pressure Non-Invasive 76 1 NGOC JONES MD [facility] 07-22-2023 11:30-0400 Heart rate 86 /min NGOC JONES MD [facility] 07-22-2023 11:30-0400 Respiratory rate 19 /min NGOC JONES MD [facility] 07-22-2023 11:30-0400 Systolic Blood Pressure Non-Invasive 124 1 NGOC JONES MD [facility] 07-22-2023 11:19-0400 Respiratory rate 15 /min NGOC JONES MD [facility] 07-22-2023 11:07-0400 Respiratory rate 19 /min NGOC JONES MD [facility] 07-22-2023 10:42-0400 Body temperature 97.88 [degF] NGOC JONES MD [facility] 07-22-2023 10:35-0400 Respiratory Rate - Anes 8 br/min NGOC JONES MD [facility] 07-22-2023 10:30-0400 Body temperature 96.89 [degF] NGOC JONES MD [facility] 07-22-2023 10:30-0400 Respiratory Rate - Anes 10 br/min NGOC JONES MD [facility] 07-22-2023 10:25-0400 Body temperature 96.91 [degF] NGOC JONES MD [facility] 07-22-2023 10:25-0400 Respiratory Rate - Anes 10 br/min NGOC JONES MD [facility] 07-22-2023 10:20-0400 Body temperature 96.91 [degF] NGOC JONES MD [facility] 07-22-2023 08:45-0400 Body height 165.1 cm NGOC JONES MD [facility] 07-22-2023 08:45-0400 Body temperature 97.52 [degF] NGOC JONES MD [facility] 07-22-2023 08:45-0400 Body weight 86.3 kg NGOC JONES MD [facility] 07-22-2023 08:45-0400 Heart rate 93 /min NGOC JONES MD [facility] Encounters Encounter Date Encounter Type Care Provider Facility Start: 05-14-2025 End: 05-14-2025 ambulatory EVELIO DINHPKINS TUBING MILL 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 Facility:[facility] Start: 05-14-2025 End: 05-14-2025 Patient encounter procedure EVELIO DINHPKINS TUBING MILL 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 [facility] Start: 05-11-2025 End: 05-15-2025 ambulatory EVELIO DINHPKINS TUBING MILL 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 Facility:[facility] Start: 05-11-2025 End: 05-15-2025 Encounter for general adult medical examination without abnormal findings EVELIO DINHPKINS TUBING MILL 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 Facility:[facility] Start: 05-11-2025 End: 05-15-2025 Outreach Lab EVELIO DINHPKINS TUBING MILL 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 [facility] Start: 02-25-2025 End: 03-01-2025 ambulatory EVELIO DINHPKINS TUBING MILL 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 Facility:[facility] Start: 02-25-2025 End: 03-01-2025 Outreach Lab EVELIO Chao BEBETO TUBING MILL 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 [facility] Start: 03-09-2024 End: 03-09-2024 ambulatory WILLIAM DALTON Facility:[facility] Start: 03-09-2024 End: 03-09-[address] WILLIAM DALTON MD [facility] Start: 12-04-2023 End: 12-05-2023 ambulatory EVELIO Chao BEBETO TUBING MILL 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 Facility:[facility] Start: 12-04-2023 End: 12-04-2023 Patient encounter procedure EVELIO Chao BEBETO TUBING MILL 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 [facility] Start: 07-22-2023 End: 07-22-2023 ambulatory NGOC JONES MD Facility:[facility] Start: 07-22-2023 End: 07-22-2023 SAME DAY STAY NGOC JONES MD [facility] Start: 07-10-2023 End: 07-11-2023 ambulatory NGOC JONES MD Facility:[facility] Start: 11-30-2022 End: 11-30-2022 Patient encounter procedure EVELIO STEPHENS TUBING MILL 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 [facility] Start: 11-27-2021 End: 11-27-2021 Patient encounter procedure EVELIO STEPHENS TUBING MILL 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 [facility] Start: 01-06-2021 End: 01-06-2021 Patient encounter procedure [facility] Start: 12-16-2020 End: 12-16-2020 Patient encounter procedure [facility] Procedures Date Procedure Procedure Detail Performing Clinician Start: 07-22-2023 Lipoma of abdominal wall (disorder) EVELIO STEPHENS TUBING MILL 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 Start: 07-22-2023 Umbilical hernia (disorder) NGOC JONES MD Comment on above: WITH LIPOMA EXCISION RIGHT UPPER QUADRANT Start: 06-21-2020 Total replacement of hip DR WILLIAM DALTON MD Comment on above: RIGHT Colonoscopy EVELIO Claire TUBING MILL 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 Repair of tendo achilles ANYI ROSE MARY STEPHENS TUBING MILL 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 Comment on above: lengthening 1965 LEFT Immunizations Immunization Date Immunization Notes Care Provider Fa tavo 05-11-2025 Pneumococcal conjuga te PCV20, polysaccharide [id number] conjugate, adjuvant, PF; Translations: [Prevnar 20] EVELIO STEPHENS TUBING MILL 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 [facility] 10-02-2024 SARS-CoV-2 (COVID-19 ) [id number] EVELIO STEPHENS TUBING MILL 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 [facility] 07-30-2024 influenza virus vacc ine, unspecified formulation EVELIO STEPHENS TUBING MILL 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 [facility] 09-20-2023 SARS-CoV-2 (COVID-19 ) [id number] EVELIO STEPHENS TUBING MILL 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 [facility] 08-05-2023 influenza virus vacc ine, unspecified formulation EVELIO STEPHENS TUBING MILL 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 [facility] [place] 08-05-2023 RSV vaccine preF3, recombinant EVELIO STEPHENS TUBING MILL 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 [facility] 07-09-2022 influenza, injectabl e, quadrivalent, contains preservative; Translations: [Fluarix PF Quadrivalent ] EVELIO STEPHENS TUBING MILL 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 [facility] 02-16-2022 SARS-CoV-2 mRNA (ubdxkmtgsba-nqng-zzbjdn e) vaccine EVELIO STEPHENS TUBING MILL 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 [facility] 08-17-2021 SARS-CoV-2 mRNA (tozinameran) vaccine EVELIO STEPHENS TUBING MILL 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 [facility] 07-16-2021 influenza virus vacc ine, unspecified formulation EVELIO STEPHENS TUBING MILL 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 [facility] 02-28-2021 zoster vaccine recombinant EVELIO STEPHENS TUBING MILL 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 [facility] 01-06-2021 SARS-CoV-2 mRNA (tozinameran) vaccine EVELIO STEPHENS TUBING MILL 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 [facility] 12-16-2020 SARS-CoV-2 mRNA (tozinameran) vaccine EVELIO STEPHENS TUBING MILL 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 [facility] 09-30-2020 zoster vaccine recombinant EVELIO STEPHENS TUBING MILL 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 [facility] 06-23-2020 influenza, injectabl e, quadrivalent, preservative free; Translations: [Fluarix PF Quadrivalent ] EVELIO STEPHENS TUBING MILL 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 [facility] 08-21-2019 influenza virus vacc ine, unspecified formulation EVELIO STEPHENS TUBING MILL 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 [facility] 08-18-2018 influenza virus vacc ine, unspecified formulation EVELIO STEPHENS TUBING MILL 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 [facility] 06-21-2018 influenza virus vacc ine, unspecified formulation EVELIO STEPHENS TUBING MILL 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 [facility] 06-20-2018 influenza virus vacc ine, unspecified formulation EVELIO STEPHENS TUBING MILL 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 [facility] 08-19-2017 influenza virus vacc ine, unspecified formulation EVELIO STEPHENS TUBING MILL 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 [facility] 08-21-2016 influenza virus vacc ine, unspecified formulation EVELIO STEPHENS TUBING MILL 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 [facility] 08-18-2015 influenza virus vacc ine, unspecified formulation EVELIO STEPHENS TUBING MILL 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 [facility] 05-07-2014 tetanus toxoid, redu mita diphtheria toxoid, and acellular pertussis vaccine, adsorbed EVELIO STEPHENS TUBING MILL 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 [facility] 04-20-2014 tetanus and diphther ia toxoids, adsorbed, preservative free, for adult use (5 Lf of tetanus toxoid and 2 Lf of diphtheria toxoid) EVELIO STEPHENS TUBING MILL 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 [facility] 04-19-2014 diphtheria and tetan us toxoids, adsorbed for pediatric use EVELIO STEPHENS TUBING MILL 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 [facility] 01-16-2013 zoster vaccine, live EVELIO STEPHENS TUBING MILL 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 [facility] 12-19-2012 zoster vaccine recombinant EVELIO STEPHENS TUBING MILL 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 [facility] 12-18-2012 zoster vaccine recombinant EVELIO STEPHENS TUBING MILL 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 [facility] Payers Date Payer Category Payer Private Health Insurance [id number] 2024 Private Health Insurance [id number] [id number] Private Health Insurance [id number] 2023 Unknown [id number] 2023 Unknown [id number] 1960 Unknown [id number] 2.16.8 [id number] 1960 Unknown [id number] 2.16.8 [id number] 1960 Unknown [id number] 2.16.8 [id number] 1960 Unknown [id number] 2.16.8 [id number] 1960 Unknown [id number] 2.16. [id number] 1960 Unknown [id number] 2.16. [id number] 1960 Unknown [id number] 2.16.8 [id number] 1960 Unknown [id number] 2.16.84 [id number] 1960 Unknown [id number] 2.16.84 [id number] Social History Date Type Detail Facility Start: 06-23-2020 End: 05-11-2025 Ex-smoker (finding) [facility] Sex Assigned At Female [facility] Sexual Orientation [facility] Start: 04-15-2019 Sex Female (finding) [facility] Functional Status Date Assessment Result Facility 03-09-2024 Functional Status Resting [facility] 03-09-2024 Functional Status Maintained [facility] 07-22-2023 Functional Status Sequential Com pression Device bilateral knee high applied/on [facility] 07-22-2023 Functional Status [facility] 07-22-2023 Functional Status Maintained [facility] Mental Status Date Assessment Result Facility 07-22-2023 Mental Status Oriented x 4 [facility] 07-22-2023 Mental Status [facility] Clinical Notes 07-22-2023 to 03-09-2024 Note Date & Type Note Facility 03-09-2024 Evaluation + Plan note Extrac damian from: Title:Clinical Document Author:WILLIAM DALTON Date:03/09/24 [place] ADMISSION HISTORY AN D PHYSICIAL CHIEF COMPLAINT: HISTORY OF PRESENT ILLNESS: REVIEW OF SYSTEMS: ACTIVE PROBLEMS: (24) BMI 32.0-32.9,adult (264421055) Eczema (15635451) Environmental allergies (4762609134) MARZENA (generalized anxiety disorder) (28551137) GERD without esophagitis (7654875877) Gout (391532586) History of cold sores (977816134) HTN - Hypertension (9611316046) Hypercholesteremia (16771073) Hyperlipidemia (66187080) Increased BMI (body mass index) (80735576) Medication management contract signed 03/2023 ([id number]) Osteopenia (532381096) Postmenopausal (880222748) Preop examination (193615917) Screening for breast cancer (436124600) Screening for cardiovascular condition (941647474) Screening for colon cancer (007839350) Screening for diabetes mellitus (053558462) Seasonal allergies (7978591041) Seasonal asthma (9264550519) Umbilical hernia (3925947986) Vitamin D deficiency (08626816) Well adult exam (207537663) MEDICATIONS: Active Inpt Meds: None Active PRN Meds: None One Time Meds: None Active IV Meds: Lactated Ringers Infusion 1,000 mL (LR 1,000 mL) Start: 03/09/24 8:23:00 EDT, Rate: 50 mL/hr, 03/09/24 8:23:00 EDT ALLERGIES: (1) Doxycycline Hyclate FAMILY HISTORY: SOCIAL HISTORY: PHYSICAL EXAM: VITALS: RxdtijLcrmRPCstlcQLNdD5JQQ0FpznCf(kg) 03/09 08:2136.1--078079SX77/20 90.3 03/09 90.3 24 Hr Tmax: 36.1 at 03/09 08:21 36 Hr Tmax: 36.1 at 03/09 08:21 Vital Signs are the last 5 in the past 48 hours. Weights display the last 5 within 7 days. Initial Wt: 03/09 90.3 kg 199 lb Current Wt: 03/09 90.3 kg 199 lb GENERAL: HEENT: CARDIOVASCULAR: RESPIRATORY: ABDOMEN: EXREMETIES: NEUROLOGICAL: PSYCHIATRIC: LABS: No 36hr Lab Data DIAGNOSTICS: IMPRESSION: PLAN: History and Physical Update I have examined the patient; reviewed the H&P and there are no changes to the H&P unless noted below. Future Appointments Appointment Date:05/21/2024 09:40:00 AM Scheduled Provider:EVELIO STEPHENS APRN, CNP Location:[facility] [place] Appointment Type:PC OV Controlled Medication Future Scheduled Tests Laboratory* Lipid Profile 06/06/23 * Lipid Profile 01/23/24 * Microalbumin Level Urine 06/06/23 * Vitamin D Level 06/06/23 * Complete Metabolic Panel 06/06/23 * Complete Metabolic Panel 01/23/24 [facility] 05-20-2024 Hospital Discharge instructions Patient Education 03/09/2024 09:35:01 Nausea and Vomiting, Adult Nausea and Vomiting, Adult Nausea is the feeling that you have an upset stomach or that you are about to vomit. Vomiting is when stomach contents are thrown up and out of the mouth as a result of nausea. Vomiting can make you feel weak and cause you to become dehydrated. Dehydration can make you feel tired and thirsty, cause you to have a dry mouth, and decrease how often you urinate. Older adults and people with other diseases or a weak disease-fighting system (immune system) are at higher risk for dehydration. It is important to treat your nausea and vomiting as told by your health care provider. Follow these instructions at home: Watch your symptoms for any changes. Tell your health care provider about them. Follow these instructions to care for yourself at home. Eating and drinking Take an oral rehydration solution (ORS). This is a drink that is sold at pharmacies and retail stores. Drink clear fluids slowly and in small amounts as you are able. Clear fluids include water, ice chips, low-calorie sports drinks, and fruit juice that has water added (diluted fruit juice). Eat bland, vrgg-cw-dkfvie foods in small amounts as you are able. These foods include bananas, applesauce, rice, lean meats, toast, and crackers. Avoid fluids that contain a lot of sugar or caffeine, such as energy drinks, sports drinks, and soda. Avoid alcohol. Avoid spicy or fatty foods. General instructions Take nfbf-wuc-hmfwscg and prescription medicines only as told by your health care provider. Drink enough fluid to keep your urine pale yellow. Wash your hands often using soap and water. If soap and water are not available, use hand rehab director occupational therapist. Make sure that all people in your household wash their hands well and often. Rest at home while you recover. Watch your condition for any changes. Breathe slowly and deeply when you feel nauseated. Keep all follow-up visits as told by your health care provider. This is important. Contact a health care provider if: Your symptoms get worse. You have new symptoms. You have a fever. You cannot drink fluids without vomiting. Your nausea does not go away after 2 days. You feel light-headed or dizzy. You have a headache. You have muscle cramps. You have a rash. You have pain while urinating. Get help right away if: You have pain in your chest, neck, arm, or jaw. You feel extremely weak or you faint. You have persistent vomiting. You have vomit that is bright red or looks like black coffee grounds. You have bloody or black stools or stools that look like tar. You have a severe headache, a stiff neck, or both. You have severe pain, cramping, or bloating in your abdomen. You have difficulty breathing, or you are breathing very quickly. Your heart is beating very quickly. Your skin feels cold and clammy. You feel confused. You have signs of dehydration, such as: ?Dark urine, very little urine, or no urine. ?Cracked lips. ?Dry mouth. ?Sunken eyes. ?Sleepiness. ?Weakness. These symptoms may represent a serious problem that is an emergency. Do not wait to see if the symptoms will go away. Get medical help right away. Call your local emergency services (911 in the [place] Do not drive yourself to the hospital. Summary Nausea is the feeling that you have an upset stomach or that you are about to vomit. As nausea getsworse, it can lead to vomiting. Vomiting can make you feel weak and cause you to become dehydrated. Follow instructions from your health care provider about eating and drinking to prevent dehydration. Take dwrx-yqf-tmwbxem and prescription medicines only as told by your health care provider. Contact your health care provider if your symptoms get worse, or you have new symptoms. Keep all follow-up visits as told by your health care provider. This is important. This information is not intended to replace advice given to you by your health care provider. Make sure you discuss any questions you have with your health care provider. Document Released: 10/07/2006 Document Revised: 01/29/2020 Document Reviewed: 03/17/2019 [employer] Patient Education 2020 [employer]. 03/09/2024 09:34:43 Monitored Anesthesia Care, Care After Monitored Anesthesia Care, Care After These instructions provide you with information about caring for yourself after your procedure. Your health care provider may also give you more specific instructions. Your treatment has been plannedaccording to current medical practices, but problems sometimes occur. Call your health care provider if you have any problems or questions after your procedure. What can I expect after the procedure? After your procedure, you may: Feel sleepy for several hours. Feel clumsy and have poor balance for several hours. Feel forgetful about what happened after the procedure. Have poor judgment for several hours. Feel nauseous or vomit. Have a sore throat if you had a breathing tube during the procedure. Follow these instructions at home: For at least 24 hours after the procedure: Have a responsible adult stay with you. It is important to have someone help care for you until youare awake and alert. Rest as needed. Do not: ?Participate in activities in which you could fall or become injured. ?Drive. ?Use heavy machinery. ?Drink alcohol. ?Take sleeping pills or medicines that cause drowsiness. ?Make important decisions or sign legal documents. ?Take care of children on your own. Eating and drinking Follow the diet that is recommended by your health care provider. If you vomit, drink water, juice, or soup when you can drink without vomiting. Make sure you have little or no nausea before eating solid foods. General instructions Take gtwa-zug-qacowmj and prescription medicines only as told by your health care provider. If you have sleep apnea, surgery and certain medicines can increase your risk for breathing problems. Follow instructions from your health care provider about wearing your sleep device: ?Anytime you are sleeping, including during daytime naps. ?While taking prescription pain medicines, sleeping medicines, or medicines that make you drowsy. If you smoke, do not smoke without supervision. Keep all follow-up visits as told by your health care provider. This is important. Contact a health care provider if: You keep feeling nauseous or you keep vomiting. You feel light-headed. You develop a rash. You have a fever. Get help right away if: You have trouble breathing. Summary For several hours after your procedure, you may feel sleepy and have poor judgment. Have a responsible adult stay with you for at least 24 hours or until you are awake and alert. This information is not intended to replace advice given to you by your health care provider. Make sure you discuss any questions you have with your health care provider. Document Released: 01/27/2017 Document Revised: 01/05/2019 Document Reviewed: 01/27/2017 [employer] Patient Education 2020 [employer] 03/09/2024 09:34:35 Colonoscopy, Adult, Care After Colonoscopy, Adult, Care After This sheet gives you information about how to care for yourself after your procedure. Your health care provider may also give you more specific instructions. If you have problems or questions, contact your health care provider. What can I expect after the procedure? After the procedure, it is common to have: A small amount of blood in your stool for 24 hours after the procedure. Some gas. Mild abdominal cramping or bloating. Follow these instructions at home: General instructions For the first 24 hours after the procedure: ?Do not drive or use machinery. ?Do not sign important documents. ?Do not drink alcohol. ?Do your regular daily activities at a slower pace than normal. ?Eat soft, hkzx-gi-vgmovj foods. Take sphh-zlq-sheduyb or prescription medicines only as told by your health care provider. Relieving cramping and bloating Try walking around when you have cramps or feel bloated. Apply heat to your abdomen as told by your health care provider. Use a heat source that your healthcare provider recommends, such as a moist heat pack or a heating pad. ?Place a towel between your skin and the heat source. ?Leave the heat on for 20 30 minutes. ?Remove the heat if your skin turns bright red. This is especially important if you are unable to feel pain, heat, or cold. You may have a greater risk of getting burned. Eating and drinking Drink enough fluid to keep your urine pale yellow. Resume your normal diet as instructed by your health care provider. Avoid heavy or fried foods thatare hard to digest. Avoid drinking alcohol for as long as instructed by your health care provider. Contact a health care provider if: You have blood in your stool 2 3 days after the procedure. Get help right away if: You have more than a small spotting of blood in your stool. You pass large blood clots in your stool. Your abdomen is swollen. You have nausea or vomiting. You have a fever. You have increasing abdominal pain that is not relieved with medicine. Summary After the procedure, it is common to have a small amount of blood in your stool. You may also have mild abdominal cramping and bloating. For the first 24 hours after the procedure, do not drive or use machinery, sign important documents, or drink alcohol. Contact your health care provider if you have a lot of blood in your stool, nausea or vomiting, a fever, or increased abdominal pain. This information is not intended to replace advice given to you by your health care provider. Make sure you discuss any questions you have with your health care provider. Document Released: 05/21/2005 Document Revised: 07/30/2018 Document Reviewed: 12/18/2016 [employer] Patient Education 2020 [employer] Follow Up Care 02/14/2024 11:43:07 With:WILLIAM DALTON MD Address: [address] [phone] When: only if needed [facility] 05-20-2024 Summary of episode note Discharge Instructions Thank you for allowing [facility] to assist you with your healthcare needs. The following is importantdischarge information regarding your hospital visit. Your Care Team EVELIO STEPHENS APRN, CNP What to do next Scheduled Follow-Up Appointments Appointment Type When With Where Contact Information StatusPC OV Controlled Medication 05/21/2024 09:40 AM EDT EVELOI STEPHENS APRN, CNP [facility] Confirmed Follow Up Appointments Follow Up with WILLIAM DALTON MD When: When:Only if needed Where:[address] [place] [phone] The Following Activity and Diet Have Been Ordered for You Discharge Activity - Ordered -- NO activity restrictions, 03/09/24 9:29:00 EDT Discharge Diet - Ordered -- Follow the post-operative/post-procedure diet instructions provided by your physician's office.,03/09/24 9:29:00 EDT The Following Equipment Has Been Ordered for You Discharge Home Equipment Discharge Wound Care - Ordered -- Follow the post-operative/post-procedure wound care instructions provided by your physician's office., 03/09/24 9:29:00 EDT Allergies Doxycycline Hyclate Skin irritation, Blisters Medications Please ask your primary doctor or pharmacist before taking any other medication not listed, including over the counter drugs, herbal medications, vitamins and or supplements as they may interact withyour home medications. What How Much When Why Instructions Last Dose Unchanged albuterol (albuterol MDI (90 mcg/ inh) CFC free inhalation aerosol) 2 puff(s) by inhalation Every 6 hours Seasonal asthma Duration: 30 Days Unchanged aspirin (Aspir-Low 81 mg oral delayed release tablet) 1 tab(s) by mouth Once a day Unchanged cholecalciferol (Vitamin D (3) 45 units oral capsule) Once a day Unchanged clonazePAM (clonazePAM 0.5 mg oral tablet) 1 tab(s) by mouth Two (2) times a day MARZENA (generalized anxiety disorder) Medication management contract signed 03/2023 Duration: 30 Days Fill Date: 2023 Unchanged colchicine (colchicine 0.6 mg oral tablet) 1 tab(s) by mouth Two (2) times a day Gout flare Duration: 14 Days PRN acute gout flares Unchanged esomeprazole (esomeprazole 20 mg oral delayed release capsule) 1 cap by mouth Once a day GERD without esophagitis Duration: 90 Days Unchanged hydrochlorothiazide-lisinopril (hydrochlorothiazide-lisinopril 12.5 mg-20 mg oral tablet) 1 tab(s) by mouth Every day Unchanged multivitamin with minerals (Calcium, Magnesium and Zinc oral tablet) 1 tab(s) by mouth Once a day Unchanged pimecrolimus topical (pimecrolimus 1% topical cream) Unchanged triamcinolone topical (triamcinolone 0.1% topical cream) 1 application Topical Three (3) times a day Unchanged valACYclovir (Valtrex 500 mg oral tablet) 1 tab(s) by mouth Two (2) times a day History of cold sores as needed for outbreaks Please take this list to your next doctor s visit. Bring all medications you take, including over the counter medications, herbals and other supplements with you to your doctor s visit. Patients and families are reminded to discard old lists and to update any records with all medication providers or retail pharmacies. Education Materials Nausea and Vomiting, Adult Nausea is the feeling that you have an upset stomach or that you are about to vomit. Vomiting is when stomach contents are thrown up and out of the mouth as a result of nausea. Vomiting can make you feel weak and cause you to become dehydrated. Dehydration can make you feel tired and thirsty, cause you to have a dry mouth, and decrease how often you urinate. Older adults and people with other diseases or a weak disease-fighting system (immune system) are at higher risk for dehydration. It is important to treat your nausea and vomiting as told by your health care provider. Follow these instructions at home: Watch your symptoms for any changes. Tell your health care provider about them. Follow these instructions to care for yourself at home. Eating and drinking Take an oral rehydration solution (ORS). This is a drink that is sold at pharmacies and retail stores. Drink clear fluids slowly and in small amounts as you are able. Clear fluids include water, ice chips, low-calorie sports drinks, and fruit juice that has water added (diluted fruit juice). Eat bland, qqsd-it-cuvwqm foods in small amounts as you are able. These foods include bananas, applesauce, rice, lean meats, toast, and crackers. Avoid fluids that contain a lot of sugar or caffeine, such as energy drinks, sports drinks, and soda. Avoid alcohol. Avoid spicy or fatty foods. General instructions Take hkbx-dqo-orilunh and prescription medicines only as told by your health care provider. Drink enough fluid to keep your urine pale yellow. Wash your hands often using soap and water. If soap and water are not available, use hand rehab director occupational therapist. Make sure that all people in your household wash their hands well and often. Rest at home while you recover. Watch your condition for any changes. Breathe slowly and deeply when you feel nauseated. Keep all follow-up visits as told by your health care provider. This is important. Contact a health care provider if: Your symptoms get worse. You have new symptoms. You have a fever. You cannot drink fluids without vomiting. Your nausea does not go away after 2 days. You feel light-headed or dizzy. You have a headache. You have muscle cramps. You have a rash. You have pain while urinating. Get help right away if: You have pain in your chest, neck, arm, or jaw. You feel extremely weak or you faint. You have persistent vomiting. You have vomit that is bright red or looks like black coffee grounds. You have bloody or black stools or stools that look like tar. You have a severe headache, a stiff neck, or both. You have severe pain, cramping, or bloating in your abdomen. You have difficulty breathing, or you are breathing very quickly. Your heart is beating very quickly. Your skin feels cold and clammy. You feel confused. You have signs of dehydration, such as: ? Dark urine, very little urine, or no urine. ? Cracked lips. ? Dry mouth. ? Sunken eyes. ? Sleepiness. ? Weakness. These symptoms may represent a serious problem that is an emergency. Do not wait to see if the symptoms will go away. Get medical help right away. Call your local emergency services (911 in the [place] Do not drive yourself to the hospital. Summary Nausea is the feeling that you have an upset stomach or that you are about to vomit. As nausea getsworse, it can lead to vomiting. Vomiting can make you feel weak and cause you to become dehydrated. Follow instructions from your health care provider about eating and drinking to prevent dehydration. Take evsm-gnk-iupqtvt and prescription medicines only as told by your health care provider. Contact your health care provider if your symptoms get worse, or you have new symptoms. Keep all follow-up visits as told by your health care provider. This is important. This information is not intended to replace advice given to you by your health care provider. Make sure you discuss any questions you have with your health care provider. Document Released: 10/07/2006 Document Revised: 01/29/2020 Document Reviewed: 03/17/2019 [employer] Patient Education 2020 [employer]. Monitored Anesthesia Care, Care After These instructions provide you with information about caring for yourself after your procedure. Your health care provider may also give you more specific instructions. Your treatment has been plannedaccording to current medical practices, but problems sometimes occur. Call your health care provider if you have any problems or questions after your procedure. What can I expect after the procedure? After your procedure, you may: Feel sleepy for several hours. Feel clumsy and have poor balance for several hours. Feel forgetful about what happened after the procedure. Have poor judgment for several hours. Feel nauseous or vomit. Have a sore throat if you had a breathing tube during the procedure. Follow these instructions at home: For at least 24 hours after the procedure: Have a responsible adult stay with you. It is important to have someone help care for you until youare awake and alert. Rest as needed. Do not: ? Participate in activities in which you could fall or become injured. ? Drive. ? Use heavy machinery. ? Drink alcohol. ? Take sleeping pills or medicines that cause drowsiness. ? Make important decisions or sign legal documents. ? Take care of children on your own. Eating and drinking Follow the diet that is recommended by your health care provider. If you vomit, drink water, juice, or soup when you can drink without vomiting. Make sure you have little or no nausea before eating solid foods. General instructions Take irxm-ltv-ugcwmsd and prescription medicines only as told by your health care provider. If you have sleep apnea, surgery and certain medicines can increase your risk for breathing problems. Follow instructions from your health care provider about wearing your sleep device: ? Anytime you are sleeping, including during daytime naps. ? While taking prescription pain medicines, sleeping medicines, or medicines that make you drowsy. If you smoke, do not smoke without supervision. Keep all follow-up visits as told by your health care provider. This is important. Contact a health care provider if: You keep feeling nauseous or you keep vomiting. You feel light-headed. You develop a rash. You have a fever. Get help right away if: You have trouble breathing. Summary For several hours after your procedure, you may feel sleepy and have poor judgment. Have a responsible adult stay with you for at least 24 hours or until you are awake and alert. This information is not intended to replace advice given to you by your health care provider. Make sure you discuss any questions you have with your health care provider. Document Released: 01/27/2017 Document Revised: 01/05/2019 Document Reviewed: 01/27/2017 [employer] Patient Education 2020 [employer]. Colonoscopy, Adult, Care After This sheet gives you information about how to care for yourself after your procedure. Your health care provider may also give you more specific instructions. If you have problems or questions, contact your health care provider. What can I expect after the procedure? After the procedure, it is common to have: A small amount of blood in your stool for 24 hours after the procedure. Some gas. Mild abdominal cramping or bloating. Follow these instructions at home: General instructions For the first 24 hours after the procedure: ? Do not drive or use machinery. ? Do not sign important documents. ? Do not drink alcohol. ? Do your regular daily activities at a slower pace than normal. ? Eat soft, zvqa-xf-tveeww foods. Take jxjz-knv-qavacph or prescription medicines only as told by your health care provider. Relieving cramping and bloating Try walking around when you have cramps or feel bloated. Apply heat to your abdomen as told by your health care provider. Use a heat source that your healthcare provider recommends, such as a moist heat pack or a heating pad. ? Place a towel between your skin and the heat source. ? Leave the heat on for 20 30 minutes. ? Remove the heat if your skin turns bright red. This is especially important if you are unable to feel pain, heat, or cold. You may have a greater risk of getting burned. Eating and drinking Drink enough fluid to keep your urine pale yellow. Resume your normal diet as instructed by your health care provider. Avoid heavy or fried foods thatare hard to digest. Avoid drinking alcohol for as long as instructed by your health care provider. Contact a health care provider if: You have blood in your stool 2 3 days after the procedure. Get help right away if: You have more than a small spotting of blood in your stool. You pass large blood clots in your stool. Your abdomen is swollen. You have nausea or vomiting. You have a fever. You have increasing abdominal pain that is not relieved with medicine. Summary After the procedure, it is common to have a small amount of blood in your stool. You may also have mild abdominal cramping and bloating. For the first 24 hours after the procedure, do not drive or use machinery, sign important documents, or drink alcohol. Contact your health care provider if you have a lot of blood in your stool, nausea or vomiting, a fever, or increased abdominal pain. This information is not intended to replace advice given to you by your health care provider. Make sure you discuss any questions you have with your health care provider. Document Released: 05/21/2005 Document Revised: 07/30/2018 Document Reviewed: 12/18/2016 [employer] Patient Education 2020 [employer]. Additional Information VACCINATE! IT SAVES LIVES! Members of the community who have not yet received the COVID-19 vaccine and would like to receive it can visit one of [facility] vaccine clinics. There are many vaccine clinic locations within the [facility]. For locations and available times, please visit [email or web address] It is important to note that some COVID mobile vaccine clinics are held outdoors and may be canceled in rainy or stormy conditions. To learn more about pediatric vaccinations (ages 5-11), we invite you to visit the [facility] webpage. [email or web address].[email or web address].org/pages/6545-Hvfgo-Sjtclrkzoii-Siahlqbwki-Vfnax-Uav stions.htmlTo learn more about the COVID-19 vaccine, we invite you to visit the CDC website for a list of frequently asked questions.https://www.cdc.gov/coronavirus/2019-ncov/vaccines/faq.html [facility] Patient Portal Access Instructions: Stay connected with your healthcare team and access your personal medical information anytime with the [facility] Patient Portal. Please follow the directions below to create your [facility] [employer] account: 1.Access the email account you provided upon registration to the hospital/physician office.2.Look for an invitation email from [facility].3.Open the email and access the invitation link: [facility]itation to [facility].4.Fill in the required merino to create your account. To access your account, visit [email or web address]. Click the blue button labeled Access Patient Portal and then log in with the username and password that you created in the steps above. You will be able to view your test results, lab results, a summary of your visits, upcoming appointments and more. There is also a convenient messaging option where you can send secure messages to your p rovider. In addition, you will have the ability to download any documents or summaries to your computer and/or send the information securely to a physician. Remember that your healthcare information is confidential, so carefully consider who you will allowto register on the [facility] [employer] [facility] Patient Portal for access to your information. You can also access the [email or web address] Patient Portal on the [facility]. Simply click on Patient Portal and then log into your account. If you would like to receive a full copy of your medical records, please contact the [facility] Medical Records Department by calling [phone], Saturday through Saturday between 8 a.m. and 4:30 p.m. HOW TO SAFELY DISPOSE OF PRESCRIPTION MEDICATIONS Please use one of the following methods to safely dispose of your unused medications. 1.Use a drug disposal kit: the drug disposal pouch allows you to safely discard your old and unuseddrugs. Ask your nurse to give you one when you are discharged.2.Visit a local take-back location: Many local pharmacies and police departments have programs that collect old and unwanted prescriptiondrugs. Call your local pharmacy or go to http://bit.ly/6T6Zs0h to find one close to you.3.Make use of household items: Use cat litter or old coffee grounds to dispose medications if other options arenot available. Mix your drugs with these household products, seal them in an airtight container andthrow it into the garbage. Call [facility]: [phone] to be sure your drugs can be disposed of in this way. Some medicines may require a different approach.4.Never flush your medications down the toilet. IF YOU HAVE BEEN PRESCRIBED AN OPIOID FOR PAIN If you have been prescribed an opioid (such as hydrocodone, oxycodone or morphine), it is critical to understand the possible side effects and risks of opioid pain medications. Even when taken as directed, opioids can have several side effects including: Tolerance, meaning you might need to take more of a medication for the same pain relief. Nausea, vomiting and/or constipation. Sleepiness, dizziness, dry mouth, confusion, depression or itching. Physical dependence, meaning you have withdrawal symptoms when a medication is stopped, can develop within a few days. KNOW YOUR RESPONSIBILITIES It is important to know exactly how much and how often to take the opioid pain medications you are prescribed. Never take opioids in higher amounts or more often than prescribed. Do not combine opioids with alcohol or other drugs that cause drowsiness, such as benzodiazepines, also known as benzos, including diazepam and alprazolam, muscle relaxants or sleep aids. Never sell or share prescription opioids. This is illegal. Store opioids in a secure place and out of reach of others (including children, family, friends and visitors). The last page of this document has been signed and retained as a CHART COPY. Signatures Patient Education Materials Nausea and Vomiting, Adult Monitored Anesthesia Care, Care After Colonoscopy, Adult, Care After Medication Leaflets My discharge plan and instructions have been reviewed and explained to me and ICANDIDA SUSAN M understand my current condition and have read and understand these discharge instructions. I have received a written copy of the plan/instructions. If I have questions, I am aware that I should contact my d octor. 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 Patient was brought to the endoscopy suite and placed in the left shoulderdown. Colonoscope was advanced to the cecum there were no large polyps noted. He had excellent preparation. Withdrawing the scope from the cecum good visualization throughout the entire colon. Obvious large polyps in the transverse colon, below splenic flexure the vascular pedicles was normal though scattered diverticuli in the sigmoid area. Down in the sigmoid at about 25 cm with small sessile polyps less than 2 mm nasal randomly biopsied. Reflexion performed the rectum showed small internal hemorrhoids was decompressed and the patient tolerated the procedure well. Post-Procedure Exam Small polyps biopsied in the colon Findings Small polyps in the sigmoid colon Complications None Total Time Approximately 20 minutes Assessment/Plan Orders: Lactated Ringers Infusion 1,000 mL(LR 1,000 mL), 1000 mL, Intravenous Bedrest, 03/09/24 9:29:00 EDT, Strict, continuous, Constant order, Lying on side until alert or as ordered Bedrest, 03/09/24 9:29:00 EDT, Strict, continuous, Constant order, Lying on side until alert or as ordered Call Parameters, 03/09/24 9:29:00 EDT, Notify for vomiting, severe pain, signs of bleeding, severe abdominal pain, distention or rigidity, Constant order Communication Order (scheduled), 03/09/24 8:23:00 EDT, Once, 03/09/24 8:23:00 EDT, Pathology TissueRequest Communication Order (scheduled), 03/09/24 8:23:00 EDT, Once, 03/09/24 8:23:00 EDT, Urine Test or waiver for women of child bearing age Communication Order (scheduled), 03/09/24 8:23:00 EDT, Once, 03/09/24 8:23:00 EDT, Fasting Blood Sugar priot to procedure of patient is diabetic Diet Order, 03/09/24 9:29:00 EDT, Start Meal: Next meal, Clear Liquid Diet, Post exam or after gag reflex returns if EGD, Constant Order, : No, per patient, : No Discharge, 03/09/24 8:23:00 EDT, Discharged to: Home, when able to ambulate and after being seen byphysician Discharge Activity, NO activity restrictions, 03/09/24 9:29:00 EDT Discharge Diet, Follow the post-operative/post-procedure diet instructions provided by your physician's office., 03/09/24 9:29:00 EDT Discharge Wound Care, Follow the post-operative/post-procedure wound care instructions provided by your physician's office., 03/09/24 9:29:00 EDT Pathology Tissue Request, 03/09/24 9:23:00 EDT, Collected, Routine, Nurse Collect, AP Specimen, TISSUE, SEE CHART, COLONOSCOPY, SCREENING, SCREENING, Preferred Lab: [facility], [id number] Post Procedure Assessment, 03/09/24 9:29:00 EDT, Stop Date 03/09/24 9:29:00 EDT, [facility] in [facility] Recovery Room until Delta Score of 12 or Preprocedure Sign Consent, 03/09/24 8:23:00 EDT, Once, For Colonoscopy Vital Signs, 03/09/24 9:29:00 EDT, q15min, 1 hour(s), 03/09/24 10:15:00 EDT Vital Signs, 03/09/24 9:29:00 EDT, q30min, 1 hour(s), 03/09/24 10:00:00 EDT Vital Signs PRN, 03/09/24 9:29:00 EDT, PRN order Follow Up/Recommendation Follow-up the biopsy of the polyp consider repeat colonoscopy in 7 years Digitally Signed by WILLIAM DALTON MD on 03/09/2024 09:33 AM [facility]05-20-2024 Anesthesiology Consult note Patient: RAZ TIRADO Age: 63 years Sex: Female : 1960 Associated Diagnoses: None Author: 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 Assessment Postanesthesia assessment Vitals: Vital signs from flowsheet : Vital Signs 03/09/2024 9:25 EDT Heart Rate Monitored 88 bpm bpm Respiratory Rate - Anes 20 br/min br/min 03/09/2024 9:20 EDT Heart Rate Monitored 91 bpm bpm Respiratory Rate - Anes 25 br/min br/min Systolic Blood Pressure Non-Invasive 128 mmHg mmHg Diastolic Blood Pressure Non-Invasive 86 mmHg mmHg 03/09/2024 9:15 EDT Heart Rate Monitored 75 bpm bpm Respiratory Rate - Anes 25 br/min br/min Systolic Blood Pressure Non-Invasive 147 mmHg mmHg Diastolic Blood Pressure Non-Invasive 94 mmHg mmHg 03/09/2024 9:10 EDT Heart Rate Monitored 87 bpm bpm Respiratory Rate - Anes 20 br/min br/min Systolic Blood Pressure Non-Invasive 135 mmHg mmHg Diastolic Blood Pressure Non-Invasive 88 mmHg mmHg 03/09/2024 9:05 EDT Heart Rate Monitored 81 bpm bpm Respiratory Rate - Anes 17 br/min br/min 03/09/2024 8:21 EDT Temperature Temporal Artery 36.1 DegC Apical Heart Rate 79 bpm Respiratory Rate 14 br/min Systolic Blood Pressure Non-Invasive 162 mmHg HI Diastolic Blood Pressure Non-Invasive 99 mmHg HI , Measurements from flowsheet . Mental status: alert & oriented x 4. Respiratory function: respirations are non-labored. Respiratory support: none. CV function: Normal rate. Cardiovascular support: none. Pain. Nausea status: see nursing documentation of medications. Postoperative hydration status: within normal limits. Digitally Signed by YOANDY LOJA on 03/09/2024 09:27 AM [facility]05-20-2024 Anesthesiology Consult note Patient: RAZ TIRADO Age: 63 years Sex: Female : 1960 Associated Diagnoses: None Author: YOANDY LOJA Preoperative Information Time of last solid food intake: 03/09/2024 00:00:00 Time of last clear liquid intake: 03/09/2024 06:30:00 Anesthesia history Patient's history: negative. Family's history: negative. Health Status Allergies: Allergic Reactions (Selected) Severity Not Documented Doxycycline Hyclate- Skin irritation and blisters., Allergies (1) ActiveReaction Doxycycline HyclateBlisters Current medications: (Selected) Inpatient Medications Ordered LR 1,000 mL: 50 mL/hr, Intravenous Prescriptions Prescribed Valtrex 500 mg oral tablet: 500 mg, 1 tab(s), Oral, BID, as needed for outbreaks, 80 tab(s), 3 Refill(s) albuterol MDI (90 mcg/inh) CFC free inhalation aerosol: 2 puff(s), Inhalation, q6h, for 30 day(s), 18 gram(s), 5 Refill(s) clonazePAM 0.5 mg oral tablet: 0.5 mg, 1 tab(s), Oral, BID, for 30 day(s), Fill Date: 02/21/2024, 60 tab(s), 2 Refill(s) colchicine 0.6 mg oral tablet: 0.6 mg, 1 tab(s), Oral, BID, for 14 day(s), PRN acute gout flares, 28 tab(s), 2 Refill(s) esomeprazole 20 mg oral delayed release capsule: 20 mg, 1 cap(s), Oral, qDay, for 90 day(s), 90 cap(s), 1 Refill(s) hydrochlorothiazide-lisinopril 12.5 mg-20 mg oral tablet: 1 tab(s), Oral, Daily, 90 tab(s), 0 Refill(s) Documented Medications Documented Aspir-Low 81 mg oral delayed release tablet: 81 mg, 1 tab(s), Oral, qDay, 30 tab(s), 0 Refill(s) Calcium, Magnesium and Zinc oral tablet: 1 tab(s), Oral, qDay, 30 tab(s), 0 Refill(s) Vitamin D (3) 45 units oral capsule: qDay, 0 Refill(s) pimecrolimus 1% topical cream: 0 Refill(s) triamcinolone 0.1% topical cream: 1 clinton, Topical, TID, 80 gram(s), 0 Refill(s), Medications (1) Active Scheduled: (0) Continuous: (1) Lactated Ringers 1,000 mL 1,000 mL, Intravenous, 50 mL/hr PRN: (0) Problem list: Medical BMI 32.0-32.9,adult / SNOMED CT 758749056 / Confirmed Medication management contract signed 03/2023 / SNOMED CT 513425603 / Confirmed Eczema / SNOMED CT 61043238 / Confirmed Environmental allergies / SNOMED CT 5774905165 / Confirmed GERD without esophagitis / SNOMED CT 3636940374 / Confirmed MARZENA (generalized anxiety disorder) / SNOMED CT 96603613 / Confirmed Gout / SNOMED CT 207294922 / Confirmed History of cold sores / SNOMED CT 681028770 / Confirmed HTN - Hypertension / SNOMED CT 1936655857 / Confirmed Hypercholesteremia / SNOMED CT 02360286 / Confirmed Hyperlipidemia / SNOMED CT 46737267 / Confirmed Increased BMI (body mass index) / SNOMED CT 77188538 / Confirmed Osteopenia / SNOMED CT 686713611 / Confirmed Well adult exam / SNOMED CT 953497592 / Confirmed Screening for breast cancer / SNOMED CT 147833115 / Confirmed Screening for colon cancer / SNOMED CT 780279434 / Confirmed Screening for cardiovascular condition / SNOMED CT 881127054 / Confirmed Screening for diabetes mellitus / SNOMED CT 931166049 / Confirmed Preop examination / SNOMED CT 254677992 / Confirmed Postmenopausal / SNOMED CT 445626777 / Confirmed Seasonal allergies / SNOMED CT 6796124008 / Confirmed Seasonal asthma / SNOMED CT 0301747897 / Confirmed Umbilical hernia / SNOMED CT 8852521480 / Confirmed Vitamin D deficiency / SNOMED CT 82716634 / Confirmed, Active Problems (24) BMI 32.0-32.9,adult Eczema Environmental allergies MARZENA (generalized anxiety disorder) GERD without esophagitis Gout History of cold sores HTN - Hypertension Hypercholesteremia Hyperlipidemia Increased BMI (body mass index) Medication management contract signed 03/2023 Osteopenia Postmenopausal Preop examination Screening for breast cancer Screening for cardiovascular condition Screening for colon cancer Screening for diabetes mellitus Seasonal allergies Seasonal asthma Umbilical hernia Vitamin D deficiency Well adult exam Histories Past Medical History: Resolved Screening mammogram, encounter for (694503552): Resolved. Annual physical exam (306297308): Resolved. Postop check (340676175): Resolved. Family History: Cancer Mother Hypertension Father Mother Brother Heart disease Father Alcohol abuse Brother Stroke Brother Bladder cancer Father Prostate cancer Father Procedure history: Umbilical hernia ([id number]) on 07/22/2023 at 63 Years. Comments: 07/22/2023 11:00 Ngoc Oliver RN WITH LIPOMA EXCISION RIGHT UPPER QUADRANT Lipoma of abdominal wall (660334475) on 07/22/2023 at 63 Years. Total hip replacement ([id number]) on 06/21/2020 at 60 Years. Comments: 03/09/2024 8:26 EDT - Lizzie Parra RN RIGHT Achilles tendon repair ([id number]). Comments: 07/19/2020 7:27 EDT - Ngoc Patino RN LEFT 04/30/2019 8:13 EDT - Rossy Beyer LPN lengthening 1965 Colonoscopy ([id number]). Social History: Social & Psychosocial Habits Alcohol 03/09/2024 Use: Current Frequency: 1-2 times per week Previous treatment: None Has alcohol use interfered with work or home life: No Do you ever drink more than intended: No Employment/School 02/20/2024 Status: Retired Substance Abuse 03/09/2024 Use: Never Tobacco 03/09/2024 Tobacco Use: Former smoker, quit more, quit in 1990 Exposure to Tobacco Smoke Lives in non-smoking home Home/Environment 03/09/2024 Domestic Concerns None Spouse Name BUTCH Marital Status of Patient if Patient Independent Adult: Nutrition/Health 03/09/2024 Caffeine intake amount: 2 servings of coffe and soda 03/09/2024 Appetite Excellent 03/09/2024 Type of diet: Regular Eating Difficulties None Physical Examination Vital Signs 03/09/2024 8:21 EDT Temperature Temporal Artery 36.1 DegC Apical Heart Rate 79 bpm Respiratory Rate 14 br/min Systolic Blood Pressure Non-Invasive 162 mmHg HI Diastolic Blood Pressure Non-Invasive 99 mmHg HI Vital Signs(last 24 hrs) Last Charted SBPH 162mmHg (MARCH 09 08:21) DBPH 99mmHg (MARCH 09 08:21) BMI32.93 (MARCH 09 08:30) Measurements from flowsheet : Measurements 03/09/2024 8:30 EDT Height 165.6 cm Admission Weight 90.3 kg [place] Body Weight 57.45 kg BSA Admission 1.98 Body Mass Index 32.93 kg/m2 03/09/2024 8:21 EDT Height 165.6 cm Height in inches 65.2 inch(es) Admission Weight 90.3 kg Weight Lbs 198.7 lb [place] Body Weight 57.45 kg Pain assessment: Pain Assessment 03/09/2024 8:21 EDT Primary Pain Intensity 0 Pain Scale Type 0-10 Pain scale . General: Alert and oriented. Airway: Normal temporomandibular joint mobility, Normal mouth, Normal neck range of motion. Mallampati classification: III (soft palate, base of uvula visible). Dentition Evaluation: Denies loose/chipped teeth. Respiratory: Respirations are non-labored. Cardiovascular: Normal rate. Neurologic: Alert, Oriented. Review / Management Results review: No qualifying data available , Lab results 03/09/2024 8:30 EDT Designated Person #1 We May Share AMA RAE [phone] Designated Person #1 Relationship Spouse Height 165.6 cm Admission Weight 90.3 kg [place] Body Weight 57.45 kg BSA Admission 1.98 Body Mass Index 32.93 kg/m2 Status No, per patient Sensory Deficits None Infectious Disease Symptoms Patient states no symptoms Infectious Disease Recent Exposure No Alcohol and Drug Use No Employee of Institutional Living No Health Care Employee No History of Exposure to TB No History of Positive Chest X-Ray for TB No History of Positive TB Skin Test No Homeless No Known Immunosuppression No Recent Immigrant No Resident of Institutional Living No Bloody Sputum No Fatigue No Fever No Loss of Appetite No Night Sweats No Persistent Cough > 3 Weeks No Weight Loss No Barriers to Learning None evident Teaching Method Explanation Preferred Spoken Language Citizen Of The [place] Preferred Written Language Citizen Of [place] Information Given by Patient Patient's Current Physicians Patient's Current Physicians Discharge To, Anticipated Home independently Prev Test Positive/Diagnosis w/COVID-19 Yes Previous COVID-19 Positive Date APRIL 2023 Current Quarantine/Isolated any Illness No Any Contact with Sick Animals/Birds No Traveled Anywhere in Last 30 Days No No Personal Devices, Patient Valuables Glasses Admission Note-Nursing Procedure/Therapy Intake 03/09/2024 8:21 EDT Height 165.6 cm Height in inches 65.2 inch(es) Admission Weight 90.3 kg Weight Lbs 198.7 lb [place] Body Weight 57.45 kg Temperature Temporal Artery 36.1 DegC Apical Heart Rate 79 bpm Respiratory Rate 14 br/min Systolic Blood Pressure Non-Invasive 162 mmHg HI Diastolic Blood Pressure Non-Invasive 99 mmHg HI Primary Pain Intensity 0 Pain Scale Type 0-10 Pain scale Heart Rhythm Regular Respirations Unlabored Oxygen Therapy Room air Oxygen Saturation 97 % Abdomen Description Non-distended, Soft Abdomen Palpation Non-Tender Skin Temperature Warm Skin Description [place], Normal for ethnicity, Dry Skin Integrity Intact Neurological Symptoms Patient denies Level of Consciousness Alert Strength All Extremities Strong Tone All Extremities Normal Sensation All Extremities Intact Delta Motor (2) Moves 4 extremities voluntarily or on command Delta Respirations (2) Spontaneous respiration without support, RR > 10 Delta Blood Pressure (2) BP 20% above or below preanesthetic level Delta Pulse (2) Pulse 20% above or below preanesthetic level Delta Oxygen Saturation (2) 94% or more Delta Level of Consciousness (2) Fully awake Delta III Score 12 Positioning Repositions self Standard Safety ID band on, Allergy Band on, Call device within reach, Bed in low position, Wheels locked 03/09/2024 8:19 EDT Urinary Elimination Voiding, no difficulties IV Present Present Allergies Yes Colon Prep Results Excellent Consent Form Signed Yes History & Physical Update On Chart Yes History & Physical On Chart Yes Bowel Prep Completed Yes NPO Status Maintained Allergy Band on and Verified Yes Patient ID Band on and Verified Yes Implants Verified Yes Pacemaker/AICD Verified Yes Site Verified by Patient/Family Yes Anesthesia Consent Signed Yes Last Fluid Intake 03/09/2024 6:30 Last Food Intake 03/08/2024 8:21 Last Void 03/09/2024 8:21 . Assessment and Plan [place] [employer]hes[employer] (ASA) physical status classification: Class III. Anesthetic Preoperative Plan Anesthetic technique: MAC. Informed consent: signed by patient. Digitally Signed by YOANDY LOJA on 03/09/2024 09:08 AM [facility]05-20-2024 Note [place] ADMISSION HISTORY AND PHYSICIAL CHIEF COMPLAINT: HISTORY OF PRESENT ILLNESS: REVIEW OF SYSTEMS: ACTIVE PROBLEMS: (24) BMI 32.0-32.9,adult (542313816) Eczema (36855453) Environmental allergies (4285902397) MARZENA (generalized anxiety disorder) (27519576) GERD without esophagitis (9955773187) Gout (359208566) History of cold sores (529499607) HTN - Hypertension (6530418878) Hypercholesteremia (24552688) Hyperlipidemia (74830816) Increased BMI (body mass index) (04008073) Medication management contract signed 03/2023 ([id number]) Osteopenia (705125430) Postmenopausal (516520919) Preop examination (074115885) Screening for breast cancer (233016555) Screening for cardiovascular condition (822781970) Screening for colon cancer (603761158) Screening for diabetes mellitus (606060024) Seasonal allergies (1142378006) Seasonal asthma (8826706566) Umbilical hernia (5571445335) Vitamin D deficiency (02934367) Well adult exam (882297369) MEDICATIONS: Active Inpt Meds: None Active PRN Meds: None One Time Meds: None Active IV Meds: Lactated Ringers Infusion 1,000 mL (LR 1,000 mL) Start: 03/09/24 8:23:00 EDT, Rate: 50 mL/hr, 03/09/24 8:23:00 EDT ALLERGIES: (1) Doxycycline Hyclate FAMILY HISTORY: SOCIAL HISTORY: PHYSICAL EXAM: VITALS: [id number](kg) 03/09 08:2136.1--[id number]/20 90.3 03/09 90.3 24 Hr Tmax: 36.1 at 03/09 08:21 36 Hr Tmax: 36.1 at 03/09 08:21 Vital Signs are the last 5 in the past 48 hours. Weights display the last 5 within 7 days. Initial Wt: 03/09 90.3 kg 199 lb Current Wt: 03/09 90.3 kg 199 lb GENERAL: HEENT: CARDIOVASCULAR: RESPIRATORY: ABDOMEN: EXREMETIES: NEUROLOGICAL: PSYCHIATRIC: LABS: No 36hr Lab Data DIAGNOSTICS: IMPRESSION: PLAN: History and Physical Update I have examined the patient; reviewed the H&P and there are no changes to the H&P unless noted below. Digitally Signed by WILLIAM DALTON MD on 03/09/2024 09:05 AM [facility]10-02-2023 Hospital Discharge instructions Patient Education 07/22/2023 11:01:25 Nausea and Vomiting, Adult Nausea and Vomiting, Adult Nausea is the feeling that you have an upset stomach or that you are about to vomit. Vomiting is when stomach contents are thrown up and out of the mouth as a result of nausea. Vomiting can make you feel weak and cause you to become dehydrated. Dehydration can make you feel tired and thirsty, cause you to have a dry mouth, and decrease how often you urinate. Older adults and people with other diseases or a weak disease-fighting system (immune system) are at higher risk for dehydration. It is important to treat your nausea and vomiting as told by your health care provider. Follow these instructions at home: Watch your symptoms for any changes. Tell your health care provider about them. Follow these instructions to care for yourself at home. Eating and drinking Take an oral rehydration solution (ORS). This is a drink that is sold at pharmacies and retail stores. Drink clear fluids slowly and in small amounts as you are able. Clear fluids include water, ice chips, low-calorie sports drinks, and fruit juice that has water added (diluted fruit juice). Eat bland, wzqb-ug-bzjpnn foods in small amounts as you are able. These foods include bananas, applesauce, rice, lean meats, toast, and crackers. Avoid fluids that contain a lot of sugar or caffeine, such as energy drinks, sports drinks, and soda. Avoid alcohol. Avoid spicy or fatty foods. General instructions Take okho-poc-ltoczuk and prescription medicines only as told by your health care provider. Drink enough fluid to keep your urine pale yellow. Wash your hands often using soap and water. If soap and water are not available, use hand rehab director occupational therapist. Make sure that all people in your household wash their hands well and often. Rest at home while you recover. Watch your condition for any changes. Breathe slowly and deeply when you feel nauseated. Keep all follow-up visits as told by your health care provider. This is important. Contact a health care provider if: Your symptoms get worse. You have new symptoms. You have a fever. You cannot drink fluids without vomiting. Your nausea does not go away after 2 days. You feel light-headed or dizzy. You have a headache. You have muscle cramps. You have a rash. You have pain while urinating. Get help right away if: You have pain in your chest, neck, arm, or jaw. You feel extremely weak or you faint. You have persistent vomiting. You have vomit that is bright red or looks like black coffee grounds. You have bloody or black stools or stools that look like tar. You have a severe headache, a stiff neck, or both. You have severe pain, cramping, or bloating in your abdomen. You have difficulty breathing, or you are breathing very quickly. Your heart is beating very quickly. Your skin feels cold and clammy. You feel confused. You have signs of dehydration, such as: ?Dark urine, very little urine, or no urine. ?Cracked lips. ?Dry mouth. ?Sunken eyes. ?Sleepiness. ?Weakness. These symptoms may represent a serious problem that is an emergency. Do not wait to see if the symptoms will go away. Get medical help right away. Call your local emergency services (911 in the [place] Do not drive yourself to the hospital. Summary Nausea is the feeling that you have an upset stomach or that you are about to vomit. As nausea getsworse, it can lead to vomiting. Vomiting can make you feel weak and cause you to become dehydrated. Follow instructions from your health care provider about eating and drinking to prevent dehydration. Take cuhc-zrf-cwbcqbd and prescription medicines only as told by your health care provider. Contact your health care provider if your symptoms get worse, or you have new symptoms. Keep all follow-up visits as told by your health care provider. This is important. This information is not intended to replace advice given to you by your health care provider. Make sure you discuss any questions you have with your health care provider. Document Released: 10/07/2006 Document Revised: 01/29/2020 Document Reviewed: 03/17/2019 [employer] Patient Education 2020 [employer] 07/22/2023 11:01:20 General Anesthesia, Adult, Care After General Anesthesia, Adult, Care After This sheet gives you information about how to care for yourself after your procedure. Your health care provider may also give you more specific instructions. If you have problems or questions, contact your health care provider. What can I expect after the procedure? After the procedure, the following side effects are common: Pain or discomfort at the IV site. Nausea. Vomiting. Sore throat. Trouble concentrating. Feeling cold or chills. Weak or tired. Sleepiness and fatigue. Soreness and body aches. These side effects can affect parts of the body that were not involved in surgery. Follow these instructions at home: For at least 24 hours after the procedure: Have a responsible adult stay with you. It is important to have someone help care for you until youare awake and alert. Rest as needed. Do not: ?Participate in activities in which you could fall or become injured. ?Drive. ?Use heavy machinery. ?Drink alcohol. ?Take sleeping pills or medicines that cause drowsiness. ?Make important decisions or sign legal documents. ?Take care of children on your own. Eating and drinking Follow any instructions from your health care provider about eating or drinking restrictions. When you feel hungry, start by eating small amounts of foods that are soft and easy to digest (bland), such as toast. Gradually return to your regular diet. Drink enough fluid to keep your urine pale yellow. If you vomit, rehydrate by drinking water, juice, or clear broth. General instructions If you have sleep apnea, surgery and certain medicines can increase your risk for breathing problems. Follow instructions from your health care provider about wearing your sleep device: ?Anytime you are sleeping, including during daytime naps. ?While taking prescription pain medicines, sleeping medicines, or medicines that make you drowsy. Return to your normal activities as told by your health care provider. Ask your health care provider what activities are safe for you. Take mxpj-tcw-ysbczly and prescription medicines only as told by your health care provider. If you smoke, do not smoke without supervision. Keep all follow-up visits as told by your health care provider. This is important. Contact a health care provider if: You have nausea or vomiting that does not get better with medicine. You cannot eat or drink without vomiting. You have pain that does not get better with medicine. You are unable to pass urine. You develop a skin rash. You have a fever. You have redness around your IV site that gets worse. Get help right away if: You have difficulty breathing. You have chest pain. You have blood in your urine or stool, or you vomit blood. Summary After the procedure, it is common to have a sore throat or nausea. It is also common to feel tired. Have a responsible adult stay with you for the first 24 hours after general anesthesia. It is important to have someone help care for you until you are awake and alert. When you feel hungry, start by eating small amounts of foods that are soft and easy to digest (bland), such as toast. Gradually return to your regular diet. Drink enough fluid to keep your urine pale yellow. Return to your normal activities as told by your health care provider. Ask your health care provider what activities are safe for you. This information is not intended to replace advice given to you by your health care provider. Make sure you discuss any questions you have with your health care provider. Document Released: 01/13/2002 Document Revised: 10/10/2018 Document Reviewed: 05/23/2018 [employer] Patient Education 2020 [employer]. 07/22/2023 11:01:14 Open Hernia Repair, Adult, Care After Open Hernia Repair, Adult, Care After This sheet gives you information about how to care for yourself after your procedure. Your health care provider may also give you more specific instructions. If you have problems or questions, contact your health care provider. What can I expect after the procedure? After the procedure, it is common to have: Mild discomfort. Slight bruising. Minor swelling. Pain in the abdomen. Follow these instructions at home: Incision care Follow instructions from your health care provider about how to take care of your incision area. Make sure you: ?Wash your hands with soap and water before you change your bandage (dressing). If soap and water are not available, use hand rehab director occupational therapist. ?Change your dressing as told by your health care provider. ?Leave stitches (sutures), skin glue, or adhesive strips in place. These skin closures may need to stay in place for 2 weeks or longer. If adhesive strip edges start to loosen and curl up, you may trim the loose edges. Do not remove adhesive strips completely unless your health care provider tells you to do that. Check your incision area every day for signs of infection. Check for: ?More redness, swelling, or pain. ?More fluid or blood. ?Warmth. ?Pus or a bad smell. Activity Do not drive or use heavy machinery while taking prescription pain medicine. Do not drive until your health care provider approves. Until your health care provider approves: ?Do not lift anything that is heavier than 10 lb (4.5 kg). ?Do not play contact sports. Return to your normal activities as told by your health care provider. Ask your health care provider what activities are safe. General instructions To prevent or treat constipation while you are taking prescription pain medicine, your health care provider may recommend that you: ?Drink enough fluid to keep your urine clear or pale yellow. ?Take kiii-xtb-qavwgkf or prescription medicines. ?Eat foods that are high in fiber, such as fresh fruits and vegetables, whole grains, and beans. ?Limit foods that are high in fat and processed sugars, such as fried and sweet foods. Take jkfs-lsc-konjgmw and prescription medicines only as told by your health care provider. Do not take tub baths or go swimming until your health care provider approves. Keep all follow-up visits as told by your health care provider. This is important. Contact a health care provider if: You develop a rash. You have more redness, swelling, or pain around your incision. You have more fluid or blood coming from your incision. Your incision feels warm to the touch. You have pus or a bad smell coming from your incision. You have a fever or chills. You have blood in your stool (feces). You have not had a bowel movement in 2 3 days. Your pain is not controlled with medicine. Get help right away if: You have chest pain or shortness of breath. You feel light-headed or feel faint. You have severe pain. You vomit and your pain is worse. This information is not intended to replace advice given to you by your health care provider. Make sure you discuss any questions you have with your health care provider. Document Released: 04/26/2006 Document Revised: 09/19/2018 Document Reviewed: 03/20/2017 [employer] Patient Education 2020 [employer]. Follow Up Care 07/08/2023 14:41:01 With:NGOC JONES MD, Surgery Address: [address] [place] [address] [phone] When: Unknown Comments:CALL OFFICE TO SCHEDULE FOLLOW UP APPOINTMENT IN 2 WEEKS [facility] 10-02-2023 Note Discharge Instructions Thank you for allowing [facility] to assist you with your healthcare needs. The following is importantdischarge information regarding your hospital visit. Your Care Team EVELIO STEPHENS APRN, CNP Your Diagnosis Acute post-operative pain What to do next Scheduled Follow-Up Appointments Appointment Type When With Where Contact InformationPC OV Controlled Medication 08/23/2023 09:00 AMEDT EVELIO STEPHENS APRN [facility] Follow Up Appointments Follow Up with NGOC JONES MD, Surgery When Why: CALL OFFICE TO SCHEDULE FOLLOW UP APPOINTMENT IN 2 WEEKS Where: [address] [facility] [place] [address]- [phone] The Following Activity and Diet Have Been Ordered for You Discharge Activity - Ordered -- Sexual Eliza Restricted No bending, twisting, crawling or squatt, No shower or tub bath for 2 days; no driving for 5 days, no lifting >15 lbs, 07/22/23 10:36:00 EDT Discharge Diet - Ordered -- Follow the post-operative/post-procedure diet instructions provided by your physician's office.,07/22/23 10:36:00 EDT The Following Equipment Has Been Ordered for You Discharge Home Equipment Discharge Wound Care - Ordered -- Dressing Type: Dry sterile drsg, Remove dressing in two (2) days. Leave steristrips on until they fall off, 07/22/23 10:36:00 EDT Medications Please ask your primary doctor or pharmacist before taking any other medication not listed, including over the counter drugs, herbal medications, vitamins and or supplements as they may interact withyour home medications. What How Much When Why Instructions Last Dose New acetaminophen-hydrocodone (Guthrie 325- 5 mg oral tablet) 1 tab(s) by mouth Every 4 hours as needed for Pain, scale 1-6 Acute post-operative pain Duration: 5 Days Pickup at [id number] Unchanged albuterol (albuterol MDI (90 mcg/ inh) CFC free inhalation aerosol) 2 puff(s) by inhalation Every 6 hours Seasonal asthma Duration: 30 Days Unchanged aspirin (Aspir-Low 81 mg oral delayed release tablet) 1 tab(s) by mouth Once a day Unchanged cholecalciferol (Vitamin D (3) 45 units oral capsule) Once a day Unchanged clonazePAM (clonazePAM 0.5 mg oral tablet) 1 tab(s) by mouth Two (2) times a day MARZENA (generalized anxiety disorder) Medication management contract signed 03/2023 Duration: 30 Days Fill Date: 2022 Unchanged colchicine (colchicine 0.6 mg oral tablet) 1 tab(s) by mouth Two (2) times a day Gout flare Duration: 14 Days PRN acute gout flares Unchanged esomeprazole (esomeprazole 20 mg oral delayed release capsule) 1 cap by mouth Once a day Duration: 90 Days Unchanged hydrochlorothiazide-lisinopril (hydrochlorothiazide-lisinopril 12.5 mg-20 mg oral tablet) 1 tab(s) by mouth Every day Unchanged multivitamin with minerals (Calcium, Magnesium and Zinc oral tablet) 1 tab(s) by mouth Once a day Unchanged pimecrolimus topical (pimecrolimus 1% topical cream) Unchanged triamcinolone topical (triamcinolone 0.1% topical cream) 1 application Topical Three (3) times a day Unchanged valACYclovir (Valtrex 500 mg oral tablet) 1 tab(s) by mouth Two (2) times a day History of cold sores as needed for outbreaks Pharmacy Information [id number]: [address], [place] [phone] [phone] Please take this list to your next doctor s visit. Bring all medications you take, including over the counter medications, herbals and other supplements with you to your doctor s visit. Patients and families are reminded to discard old lists and to update any records with all medication providers or retail pharmacies. Education Materials Nausea and Vomiting, Adult Nausea is the feeling that you have an upset stomach or that you are about to vomit. Vomiting is when stomach contents are thrown up and out of the mouth as a result of nausea. Vomiting can make you feel weak and cause you to become dehydrated. Dehydration can make you feel tired and thirsty, cause you to have a dry mouth, and decrease how often you urinate. Older adults and people with other diseases or a weak disease-fighting system (immune system) are at higher risk for dehydration. It is important to treat your nausea and vomiting as told by your health care provider. Follow these instructions at home: Watch your symptoms for any changes. Tell your health care provider about them. Follow these instructions to care for yourself at home. Eating and drinking Take an oral rehydration solution (ORS). This is a drink that is sold at pharmacies and retail stores. Drink clear fluids slowly and in small amounts as you are able. Clear fluids include water, ice chips, low-calorie sports drinks, and fruit juice that has water added (diluted fruit juice). Eat bland, mccj-rd-bjpiwx foods in small amounts as you are able. These foods include bananas, applesauce, rice, lean meats, toast, and crackers. Avoid fluids that contain a lot of sugar or caffeine, such as energy drinks, sports drinks, and soda. Avoid alcohol. Avoid spicy or fatty foods. General instructions Take juyg-pda-bijagcc and prescription medicines only as told by your health care provider. Drink enough fluid to keep your urine pale yellow. Wash your hands often using soap and water. If soap and water are not available, use hand rehab director occupational therapist. Make sure that all people in your household wash their hands well and often. Rest at home while you recover. Watch your condition for any changes. Breathe slowly and deeply when you feel nauseated. Keep all follow-up visits as told by your health care provider. This is important. Contact a health care provider if: Your symptoms get worse. You have new symptoms. You have a fever. You cannot drink fluids without vomiting. Your nausea does not go away after 2 days. You feel light-headed or dizzy. You have a headache. You have muscle cramps. You have a rash. You have pain while urinating. Get help right away if: You have pain in your chest, neck, arm, or jaw. You feel extremely weak or you faint. You have persistent vomiting. You have vomit that is bright red or looks like black coffee grounds. You have bloody or black stools or stools that look like tar. You have a severe headache, a stiff neck, or both. You have severe pain, cramping, or bloating in your abdomen. You have difficulty breathing, or you are breathing very quickly. Your heart is beating very quickly. Your skin feels cold and clammy. You feel confused. You have signs of dehydration, such as: ? Dark urine, very little urine, or no urine. ? Cracked lips. ? Dry mouth. ? Sunken eyes. ? Sleepiness. ? Weakness. These symptoms may represent a serious problem that is an emergency. Do not wait to see if the symptoms will go away. Get medical help right away. Call your local emergency services (911 in the [place] Do not drive yourself to the hospital. Summary Nausea is the feeling that you have an upset stomach or that you are about to vomit. As nausea getsworse, it can lead to vomiting. Vomiting can make you feel weak and cause you to become dehydrated. Follow instructions from your health care provider about eating and drinking to prevent dehydration. Take wtos-tst-bwlkygi and prescription medicines only as told by your health care provider. Contact your health care provider if your symptoms get worse, or you have new symptoms. Keep all follow-up visits as told by your health care provider. This is important. This information is not intended to replace advice given to you by your health care provider. Make sure you discuss any questions you have with your health care provider. Document Released: 10/07/2006 Document Revised: 01/29/2020 Document Reviewed: 03/17/2019 [employer] Patient Education 2020 [employer]. General Anesthesia, Adult, Care After This sheet gives you information about how to care for yourself after your procedure. Your health care provider may also give you more specific instructions. If you have problems or questions, contact your health care provider. What can I expect after the procedure? After the procedure, the following side effects are common: Pain or discomfort at the IV site. Nausea. Vomiting. Sore throat. Trouble concentrating. Feeling cold or chills. Weak or tired. Sleepiness and fatigue. Soreness and body aches. These side effects can affect parts of the body that were not involved in surgery. Follow these instructions at home: For at least 24 hours after the procedure: Have a responsible adult stay with you. It is important to have someone help care for you until youare awake and alert. Rest as needed. Do not: ? Participate in activities in which you could fall or become injured. ? Drive. ? Use heavy machinery. ? Drink alcohol. ? Take sleeping pills or medicines that cause drowsiness. ? Make important decisions or sign legal documents. ? Take care of children on your own. Eating and drinking Follow any instructions from your health care provider about eating or drinking restrictions. When you feel hungry, start by eating small amounts of foods that are soft and easy to digest (bland), such as toast. Gradually return to your regular diet. Drink enough fluid to keep your urine pale yellow. If you vomit, rehydrate by drinking water, juice, or clear broth. General instructions If you have sleep apnea, surgery and certain medicines can increase your risk for breathing problems. Follow instructions from your health care provider about wearing your sleep device: ? Anytime you are sleeping, including during daytime naps. ? While taking prescription pain medicines, sleeping medicines, or medicines that make you drowsy. Return to your normal activities as told by your health care provider. Ask your health care provider what activities are safe for you. Take tlxc-cly-degdpdp and prescription medicines only as told by your health care provider. If you smoke, do not smoke without supervision. Keep all follow-up visits as told by your health care provider. This is important. Contact a health care provider if: You have nausea or vomiting that does not get better with medicine. You cannot eat or drink without vomiting. You have pain that does not get better with medicine. You are unable to pass urine. You develop a skin rash. You have a fever. You have redness around your IV site that gets worse. Get help right away if: You have difficulty breathing. You have chest pain. You have blood in your urine or stool, or you vomit blood. Summary After the procedure, it is common to have a sore throat or nausea. It is also common to feel tired. Have a responsible adult stay with you for the first 24 hours after general anesthesia. It is important to have someone help care for you until you are awake and alert. When you feel hungry, start by eating small amounts of foods that are soft and easy to digest (bland), such as toast. Gradually return to your regular diet. Drink enough fluid to keep your urine pale yellow. Return to your normal activities as told by your health care provider. Ask your health care provider what activities are safe for you. This information is not intended to replace advice given to you by your health care provider. Make sure you discuss any questions you have with your health care provider. Document Released: 01/13/2002 Document Revised: 10/10/2018 Document Reviewed: 05/23/2018 [employer] Patient Education 2020 [employer] Open Hernia Repair, Adult, Care After This sheet gives you information about how to care for yourself after your procedure. Your health care provider may also give you more specific instructions. If you have problems or questions, contact your health care provider. What can I expect after the procedure? After the procedure, it is common to have: Mild discomfort. Slight bruising. Minor swelling. Pain in the abdomen. Follow these instructions at home: Incision care Follow instructions from your health care provider about how to take care of your incision area. Make sure you: ? Wash your hands with soap and water before you change your bandage (dressing). If soap and water are not available, use hand rehab director occupational therapist. ? Change your dressing as told by your health care provider. ? Leave stitches (sutures), skin glue, or adhesive strips in place. These skin closures may need to stay in place for 2 weeks or longer. If adhesive strip edges start to loosen and curl up, you may trim the loose edges. Do not remove adhesive strips completely unless your health care provider tells you to do that. Check your incision area every day for signs of infection. Check for: ? More redness, swelling, or pain. ? More fluid or blood. ? Warmth. ? Pus or a bad smell. Activity Do not drive or use heavy machinery while taking prescription pain medicine. Do not drive until your health care provider approves. Until your health care provider approves: ? Do not lift anything that is heavier than 10 lb (4.5 kg). ? Do not play contact sports. Return to your normal activities as told by your health care provider. Ask your health care provider what activities are safe. General instructions To prevent or treat constipation while you are taking prescription pain medicine, your health care provider may recommend that you: ? Drink enough fluid to keep your urine clear or pale yellow. ? Take sicy-hgz-okxjlhj or prescription medicines. ? Eat foods that are high in fiber, such as fresh fruits and vegetables, whole grains, and beans. ? Limit foods that are high in fat and processed sugars, such as fried and sweet foods. Take agwi-qyi-wzltpeb and prescription medicines only as told by your health care provider. Do not take tub baths or go swimming until your health care provider approves. Keep all follow-up visits as told by your health care provider. This is important. Contact a health care provider if: You develop a rash. You have more redness, swelling, or pain around your incision. You have more fluid or blood coming from your incision. Your incision feels warm to the touch. You have pus or a bad smell coming from your incision. You have a fever or chills. You have blood in your stool (feces). You have not had a bowel movement in 2 3 days. Your pain is not controlled with medicine. Get help right away if: You have chest pain or shortness of breath. You feel light-headed or feel faint. You have severe pain. You vomit and your pain is worse. This information is not intended to replace advice given to you by your health care provider. Make sure you discuss any questions you have with your health care provider. Document Released: 04/26/2006 Document Revised: 09/19/2018 Document Reviewed: 03/20/2017 [employer] Patient Education 2020 [employer]. Additional Information VACCINATE! IT SAVES LIVES! Members of the community who have not yet received the COVID-19 vaccine and would like to receive it can visit one of [facility] vaccine clinics. There are many vaccine clinic locations within the [facility]. For locations and available times, please visit [email or web address].[place].gov/. It is important to note that some COVID mobile vaccine clinics are held outdoors and may be canceled in rainy or stormy conditions. To learn more about pediatric vaccinations (ages 5-11), we invite you to visit the [facility] webpage. [email or web address]/[email or web address]-Quqvketcyfw-Npdygiuthe-Rszvm-Nru stions.htmlTo learn more about the COVID-19 vaccine, we invite you to visit the CDC website for a list of frequently asked questions.https://www.cdc.gov/coronavirus/2019-ncov/vaccines/faq.html [facility] Patient Portal Access Instructions: Stay connected with your healthcare team and access your personal medical information anytime with the [facility] Patient Portal. Please follow the directions below to create your [facility] account: 1.Access the email account you provided upon registration to the hospital/physician office.2.Look for an invitation email from [facility].3.Open the email and access the invitation link: AcceptInvitation to [facility].4.Fill in the required merino to create your account. To access your account, visit [employer]. Click the blue button labeled Access Patient Portal and then log in with the username and password that you created in the steps above. You will be able to view your test results, lab results, a summary of your visits, upcoming appointments and more. There is also a convenient messaging option where you can send secure messages to your p padillavider. In addition, you will have the ability to download any documents or summaries to your computer and/or send the information securely to a physician. Remember that your healthcare information is confidential, so carefully consider who you will allowto register on the [facility] Patient Portal for access to your information. You can also access the [facility] Patient Portal on the [facility] clinton. Simply click on Patient Portal and then log into your account. If you would like to receive a full copy of your medical records, please contact the [facility] Medical Records Department by calling [phone], Saturday through Saturday between 8 a.m. and 4:30 p.m. HOW TO SAFELY DISPOSE OF PRESCRIPTION MEDICATIONS Please use one of the following methods to safely dispose of your unused medications. 1.Use a drug disposal kit: the drug disposal pouch allows you to safely discard your old and unuseddrugs. Ask your nurse to give you one when you are discharged.2.Visit a local take-back location: Many local pharmacies and police departments have programs that collect old and unwanted prescriptiondrugs. Call your local pharmacy or go to http://[employer].mysportgroup/0W6Va7g to find one close to you.3.Make use of household items: Use cat litter or old coffee grounds to dispose medications if other options arenot available. Mix your drugs with these household products, seal them in an airtight container andthrow it into the garbage. Call [facility]: [phone] to be sure your drugs can be disposed of in this way. Some medicines may require a different approach.4.Never flush your medications down the toilet. IF YOU HAVE BEEN PRESCRIBED AN OPIOID FOR PAIN If you have been prescribed an opioid (such as hydrocodone, oxycodone or morphine), it is critical to understand the possible side effects and risks of opioid pain medications. Even when taken as directed, opioids can have several side effects including: Tolerance, meaning you might need to take more of a medication for the same pain relief. Nausea, vomiting and/or constipation. Sleepiness, dizziness, dry mouth, confusion, depression or itching. Physical dependence, meaning you have withdrawal symptoms when a medication is stopped, can develop within a few days. KNOW YOUR RESPONSIBILITIES It is important to know exactly how much and how often to take the opioid pain medications you are prescribed. Never take opioids in higher amounts or more often than prescribed. Do not combine opioids with alcohol or other drugs that cause drowsiness, such as benzodiazepines, also known as benzos, including diazepam and alprazolam, muscle relaxants or sleep aids. Never sell or share prescription opioids. This is illegal. Store opioids in a secure place and out of reach of others (including children, family, friends and visitors). The last page of this document has been signed and retained as a CHART COPY. Signatures Patient Education Materials Nausea and Vomiting, Adult General Anesthesia, Adult, Care After Open Hernia Repair, Adult, Care After Medication Leaflets My discharge plan and instructions have been reviewed and explained to me and I,RAZ TIRADO understand my current condition and have read and understand these discharge instructions. I have received a written copy of the plan/instructions. If I have questions, I am aware that I should contact my d octor. Patient/[employer] Signature: Date/Time: Relationship to Patient: Witness Name/Signature: Date/Time: [facility]10-02-2023 Anesthesiology Consult note Patient: RAZ TIRADO Age: 63 years Sex: Female : 1960 Associated Diagnoses: None Author: ELLIE KAMINSKI Preoperative Information Time of last food or liquid consumption: 07/21/2023 23:59:00 Anesthesia history Patient's history: negative. Family's history: negative. Review of Systems Ear/Nose/Mouth/Throat: Negative except as documented in history of present illness. Respiratory: Negative except as documented in history of present illness. Cardiovascular: Negative except as documented in history of present illness. Gastrointestinal: Negative except as documented in history of present illness. Genitourinary: Negative except as documented in history of present illness. Endocrine: Negative except as documented in history of present illness. Musculoskeletal: Negative except as documented in history of present illness. Integumentary: Negative except as documented in history of present illness. Neurologic: Negative except as documented in history of present illness. Health Status Allergies: Allergic Reactions (Selected) Severity Not Documented Doxycycline Hyclate- Skin irritation and blisters., Allergies (1) ActiveReaction Doxycycline HyclateBlisters Current medications: (Selected) Inpatient Medications Ordered LR 1,000 mL: 20 mL/hr, Intravenous Prescriptions Prescribed Valtrex 500 mg oral tablet: 500 mg, 1 tab(s), Oral, BID, as needed for outbreaks, 80 tab(s), 3 Refill(s) albuterol MDI (90 mcg/inh) CFC free inhalation aerosol: 2 puff(s), Inhalation, q6h, for 30 day(s), 18 gram(s), 5 Refill(s) clonazePAM 0.5 mg oral tablet: 0.5 mg, 1 tab(s), Oral, BID, for 30 day(s), Fill Date: 05/01/2023, 60 tab(s), 2 Refill(s) colchicine 0.6 mg oral tablet: 0.6 mg, 1 tab(s), Oral, BID, for 14 day(s), PRN acute gout flares, 28 tab(s), 2 Refill(s) esomeprazole 20 mg oral delayed release capsule: 20 mg, 1 cap(s), Oral, qDay, for 90 day(s), 90 cap(s), 2 Refill(s) hydrochlorothiazide-lisinopril 12.5 mg-20 mg oral tablet: 1 tab(s), Oral, Daily, 90 tab(s), 1 Refill(s) Documented Medications Documented Aspir-Low 81 mg oral delayed release tablet: 81 mg, 1 tab(s), Oral, qDay, 30 tab(s), 0 Refill(s) Calcium, Magnesium and Zinc oral tablet: 1 tab(s), Oral, qDay, 30 tab(s), 0 Refill(s) Vitamin D (3) 45 units oral capsule: qDay, 0 Refill(s) pimecrolimus 1% topical cream: 0 Refill(s) triamcinolone 0.1% topical cream: 1 clinton, Topical, TID, 80 gram(s), 0 Refill(s), Medications (1) Active Scheduled: (0) Continuous: (1) Lactated Ringers 1,000 mL 1,000 mL, Intravenous, 20 mL/hr PRN: (0) Problem list: Medical BMI 32.0-32.9,adult / SNOMED CT 820692718 / Confirmed Medication management contract signed 03/2023 / SNOMED CT 025681602 / Confirmed Eczema / SNOMED CT 91793642 / Confirmed Environmental allergies / SNOMED CT 3378341692 / Confirmed GERD without esophagitis / SNOMED CT 6301937064 / Confirmed MARZENA (generalized anxiety disorder) / SNOMED CT 49863983 / Confirmed Gout / SNOMED CT 117086182 / Confirmed History of cold sores / SNOMED CT 826655055 / Confirmed HTN - Hypertension / SNOMED CT 8753520836 / Confirmed Hypercholesteremia / SNOMED CT 92439965 / Confirmed Hyperlipidemia / SNOMED CT 55268032 / Confirmed Increased BMI (body mass index) / SNOMED CT 48786834 / Confirmed Osteopenia / SNOMED CT 100071388 / Confirmed Well adult exam / SNOMED CT 507248914 / Confirmed Screening for breast cancer / SNOMED CT 029994435 / Confirmed Screening for colon cancer / SNOMED CT 579218543 / Confirmed Screening for cardiovascular condition / SNOMED CT 417365168 / Confirmed Screening for diabetes mellitus / SNOMED CT 085063236 / Confirmed Preop examination / SNOMED CT 564791210 / Confirmed Postmenopausal / SNOMED CT 493056895 / Confirmed Seasonal allergies / SNOMED CT 1103215268 / Confirmed Seasonal asthma / SNOMED CT 4823980532 / Confirmed Umbilical hernia / SNOMED CT 4229842807 / Confirmed Vitamin D deficiency / SNOMED CT 66387335 / Confirmed Resolved: Screening mammogram, encounter for / SNOMED CT 900342219 Resolved: Annual physical exam / SNOMED CT 611122098 Canceled: GERD with apnea / SNOMED CT [id number] Canceled: Chronic pain of right hip / SNOMED CT 45122908 Canceled: Muscle strain / SNOMED CT 44005388 Canceled: Neck pain on right side / SNOMED CT 619614263 Canceled: Pre-op exam / SNOMED CT 108606549 Canceled: Need for vaccination / SNOMED CT 2045671341, Active Problems (24) BMI 32.0-32.9,adult Eczema Environmental allergies MARZENA (generalized anxiety disorder) GERD without esophagitis Gout History of cold sores HTN - Hypertension Hypercholesteremia Hyperlipidemia Increased BMI (body mass index) Medication management contract signed 03/2023 Osteopenia Postmenopausal Preop examination Screening for breast cancer Screening for cardiovascular condition Screening for colon cancer Screening for diabetes mellitus Seasonal allergies Seasonal asthma Umbilical hernia Vitamin D deficiency Well adult exam Histories Past Medical History: Resolved Screening mammogram, encounter for ([id number]): Resolved. Annual physical exam ([id number]): Resolved. Family History: Cancer Mother Hypertension Father Mother Brother Heart disease Father Alcohol abuse Brother Stroke Brother Bladder cancer Father Prostate cancer Father Procedure history: Achilles tendon repair ([id number]). Comments: 07/19/2020 7:27 EDT - Ngoc Patino RN LEFT 04/30/2019 8:13 EDT - Rossy Beyer LPN lengthening 1965 Colonoscopy ([id number]). Social History Social & Psychosocial Habits Alcohol 07/10/2023 Use: Current Frequency: 1-2 times per week Previous treatment: None Has alcohol use interfered with work or home life: No Do you ever drink more than intended: No Employment/School 07/08/2023 Status: Retired Substance Abuse 07/10/2023 Use: Never Tobacco 07/10/2023 Tobacco Use: Former smoker, quit more, quit in 1990 Exposure to Tobacco Smoke Lives in non-smoking home Home/Environment 07/10/2023 Domestic Concerns None Spouse Name BUTCH Marital Status of Patient if Patient Independent Adult: Nutrition/Health 07/10/2023 Caffeine intake amount: 2 servings of coffe and soda 07/10/2023 Appetite Excellent 07/10/2023 Type of diet: Regular Eating Difficulties None . Physical Examination Vital Signs 07/22/2023 9:50 EDT Temperature (Route Not Specified) 36.3 DegC DegC Heart Rate Monitored 89 bpm bpm Respiratory Rate - Anes 12 br/min br/min Systolic Blood Pressure Non-Invasive 75 mmHg mmHg Diastolic Blood Pressure Non-Invasive 55 mmHg mmHg 07/22/2023 9:45 EDT Temperature (Route Not Specified) 36.37 DegC DegC Heart Rate Monitored 96 bpm bpm Respiratory Rate - Anes 12 br/min br/min Systolic Blood Pressure Non-Invasive 91 mmHg mmHg Diastolic Blood Pressure Non-Invasive 65 mmHg mmHg 07/22/2023 9:40 EDT Heart Rate Monitored 87 bpm bpm Respiratory Rate - Anes 6 br/min br/min Systolic Blood Pressure Non-Invasive 81 mmHg mmHg Diastolic Blood Pressure Non-Invasive 62 mmHg mmHg 07/22/2023 9:35 EDT Heart Rate Monitored 86 bpm bpm Respiratory Rate - Anes 0 br/min br/min Systolic Blood Pressure Non-Invasive 135 mmHg mmHg Diastolic Blood Pressure Non-Invasive 87 mmHg mmHg 07/22/2023 9:30 EDT Respiratory Rate - Anes 0 br/min br/min 07/22/2023 8:45 EDT Temperature Temporal Artery 36.4 DegC Apical Heart Rate 93 bpm Respiratory Rate 21 br/min HI Systolic Blood Pressure Non-Invasive 138 mmHg Diastolic Blood Pressure Non-Invasive 98 mmHg HI Vital Signs(last 24 hrs) Last Charted Heart Rate [id number] bpm (JUL 22 09:50) Resp Rate H 21br/min (JUL 22 08:45) SBP75 mmHg (JUL 22 09:50) DBP55 mmHg (JUL 22 09:50) Measurements from flowsheet : Measurements 07/22/2023 8:45 EDT Height 165.1 cm Height in inches 65 inch(es) Admission Weight 86.3 kg Weight Lbs 189.9 lb [place] Body Weight 57.00 kg Admission Body Mass Index 31.66 m2 Pain assessment: Pain Assessment 07/22/2023 8:45 EDT Primary Pain Intensity 0 Pain Scale Type 0-10 Pain scale . General: Alert and oriented. Airway: Normal neck range of motion. Mallampati classification: II (soft palate, fauces, uvula visible). Head: Normocephalic. Dentition Evaluation: Intact, Own teeth. Neck: Full range of motion. Respiratory: Lungs are clear to auscultation. Cardiovascular: Normal rate. Heart Sounds: Normal. Gastrointestinal: Soft. Musculoskeletal Normal range of motion. Integumentary: Intact, Warm, Dry. Neurologic: Alert, Oriented. Review / Management Results review: No qualifying data available , Lab results 07/22/2023 9:55 EDT SN - Proc - Anesthesia Type General SN - Proc - Actual Procedure OPEN UMBILICAL HERNIA REPAIR AND EXCISION LIPOMA ABDOMEN, RIGHT UPPER QUADRANT SN - Proc - Actual Procedure . 07/22/2023 9:55 EDT SN - SP - Prep Agents Chloraprep SN - SP - HR - Method N/A 07/22/2023 9:50 EDT SN - CTm - Surgery Start 07/22/2023 9:48 07/22/2023 9:50 EDT Temperature (Route Not Specified) 36.3 DegC DegC Heart Rate Monitored 89 bpm bpm Respiratory Rate - Anes 12 br/min br/min Systolic Blood Pressure Non-Invasive 75 mmHg mmHg Diastolic Blood Pressure Non-Invasive 55 mmHg mmHg Oxygen Saturation 99 % % 07/22/2023 9:48 EDT SN - CTm - Surgery Start Surgery Start 07/22/2023 9:45 EDT Temperature (Route Not Specified) 36.37 DegC DegC Heart Rate Monitored 96 bpm bpm Respiratory Rate - Anes 12 br/min br/min Systolic Blood Pressure Non-Invasive 91 mmHg mmHg Diastolic Blood Pressure Non-Invasive 65 mmHg mmHg Oxygen Saturation 99 % % Set Rate Anes 12 br/min br/min 07/22/2023 9:40 EDT Heart Rate Monitored 87 bpm bpm Respiratory Rate - Anes 6 br/min br/min Systolic Blood Pressure Non-Invasive 81 mmHg mmHg Diastolic Blood Pressure Non-Invasive 62 mmHg mmHg Oxygen Saturation 100 % % Set Rate Anes 12 br/min br/min 07/22/2023 9:35 EDT Heart Rate Monitored 86 bpm bpm Respiratory Rate - Anes 0 br/min br/min Systolic Blood Pressure Non-Invasive 135 mmHg mmHg Diastolic Blood Pressure Non-Invasive 87 mmHg mmHg Oxygen Saturation 96 % % 07/22/2023 9:33 EDT SN - PTCare - Anti-thromboembolism Krystina Sequential Compression Device (SCD) 07/22/2023 9:31 EDT SN - CTm - Anesthesia Start Time Anesthesia Start (Modified) 07/22/2023 9:30 EDT Respiratory Rate - Anes 0 br/min br/min 07/22/2023 9:19 EDT SN - PP - Body Position Supine Standard Intra-op 07/22/2023 9:14 EDT SN - Assess - LOC Alert, Awake SN - Assess - Orientation Oriented X 3 SN - Assess - Post-op Skin Integrity Intact/Dry 07/22/2023 9:13 EDT SN - GCD - Post-operative Diagnosis UMBILICA HERNIA, AND LIPOMA RIGHT UPPER QUADRANT SN - GCD - Case Level Level 2 07/22/2023 9:13 EDT SN - CAt - Case Attendee SN - CAt - Case Attendee SN - CAt - Case Attendee SN - CAt - Case Attendee SN - CAt - Case Attendee SN - CAt - Case Attendee SN - CAt - Case Attendee SN - CAt - Case Attendee SN - CAt - Case Attendee SN - CAt - Case Attendee SN - CAt - Role Performed Primary Surgeon SN - CAt - Role Performed Rubbing Bed Operator 1 SN - CAt - Role Performed Scrub 1 SN - CAt - Role Performed Heater Helper 1 SN - CAt - Role Performed RESTORATIVE ART EMBALMER 07/22/2023 9:12 EDT SN - Preop - CTm Pt Ready for OR/Proced 07/22/2023 9:12 07/22/2023 9:08 EDT Hand Right 07/22/2023 20 gauge Peripheral IV Activity: Insert new site Peripheral IV Dressing Condition: Clean, Dry, Intact Peripheral IV Dressing Activity: Applied, Transparent dressing Peripheral IV Line Status/Patency: Flushes easily, Continuous infusion Peripheral IV Site Condition: No complications Peripheral IV Equipment: Extension set, PRN Adaptor 07/22/2023 9:02 EDT gabapentin 300 mg mg Lactated Ringers Injection Begin Bag 1,000 mL mL 07/22/2023 9:00 EDT ibuprofen 800 mg mg 07/22/2023 8:45 EDT Designated Person #1 We May Share AMA RAE [phone] Designated Person #1 Relationship Spouse Privacy Restrictions Requested None Height 165.1 cm Height in inches 65 inch(es) Admission Weight 86.3 kg Weight Lbs 189.9 lb [place] Body Weight 57.00 kg Admission Body Mass Index 31.66 m2 Temperature Temporal Artery 36.4 DegC Apical Heart Rate 93 bpm Respiratory Rate 21 br/min HI Systolic Blood Pressure Non-Invasive 138 mmHg Diastolic Blood Pressure Non-Invasive 98 mmHg HI Primary Pain Intensity 0 Pain Scale Type 0-10 Pain scale Heart Rhythm Regular Respirations Unlabored Oxygen Therapy Room air Oxygen Saturation 94 % Abdomen Description Non-distended Abdomen Palpation Non-Tender Bowel Sounds All Quadrants Present Urinary Elimination Voiding, no difficulties Status No, per patient Skin Temperature Warm Skin Description [place], Dry Skin Integrity Intact IV Present Present Level of Consciousness Alert Strength All Extremities Strong Tone All Extremities Normal Sensation All Extremities Intact Affect/Behavior Appropriate Orientation Oriented x 4 Sensory Deficits None Sleep Apnea Snore Yes Sleep Apnea Tired No Sleep Apnea Obstruction No Sleep Apnea Pressure Yes Sleep Apnea BMI No Sleep Apnea Age Yes Sleep Apnea Neck No Sleep Apnea Gender No Sleep Apnea Score 3 Diagnosed With Sleep Apnea No Advanced Directives Yes Advance Directive Type [place] Durable Power of Electricians [facility] [place] Declaration (Living Will) Advance Directive Location Patient instructed to bring in copy Infectious Disease Symptoms Patient states no symptoms Infectious Disease Recent Exposure No Alcohol and Drug Use No Employee of Institutional Living No Health Care Employee No History of Exposure to TB No History of Positive Chest X-Ray for TB No History of Positive TB Skin Test No Homeless No Known Immunosuppression No Recent Immigrant No Resident of Institutional Living No Bloody Sputum No Fatigue No Fever No Loss of Appetite No Night Sweats No Persistent Cough > 3 Weeks No Weight Loss No Pre-Op Patient Education NPO after midnight, No smoking after midnight, No makeup, No jewelry, Aware of surgery location, Pre-op education done, 1 bottle CHG wash with instructions given, Instructed to take ordered medications SN - Preprocedure Comments Spoke with patient, Verbalizes/Nonverbally indicates understanding, Other: NEXIUM Allergies Yes Anesthesia Extension Set Applied Yes 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 On Yes Consent Form Signed Yes Patient Dressed In Hospital gown CHG Preoperative Wash/Wipe Night before procedure, Day of procedure, Site specific wipe Preop Nasal Swab Povidone-Iodine CHG Skin Prep Completed for Eligible Surgery History & Physical Update On Chart Yes History & Physical On Chart Yes Obstructive Sleep Apnea Assess Completed Yes Barriers to Learning None evident Teaching Method Explanation, Printed materials Preferred Spoken Language Citizen Of [place] Preferred Written Language Citizen Of [place] Teaching Evaluation Verbalizes/Nonverbally indicates understanding Safety Brochure Information Reviewed Unable to complete Lucy Freed Video Viewed No Information Given by Patient Patient's Current Physicians Patient's Current Physicians Belongings At Bedside Pants, Purse, Shirt, Shoes, Socks, Undergarments Discharge To, Anticipated Home with family care Activity Status ADL Awake Sequential Compression Device bilateral knee high applied/on NPO Status Maintained Standard Safety ID band on, Allergy Band on, Call device within reach, Bed in low position, Wheels locked, Upper/Half-Length side-rails up, Safety level maintained, Non-Slip footwear Prev Test Positive/Diagnosis w/COVID-19 No Current Quarantine/Isolated any Illness No Any Contact with Sick Animals/Birds No Traveled Anywhere in Last 30 Days No Allergy Band on and Verified Yes Patient ID Band on and Verified Yes Implants Verified Yes Pacemaker/AICD Verified Yes Site Verified by Patient/Family Yes Anesthesia Consent Signed Yes Blood Consent Signed Yes Last Fluid Intake 07/21/2023 22:00 Last Food Intake 07/21/2023 18:00 Last Void 07/22/2023 8:45 Lost Weight Unintentionally Recently No Eat Poorly Due to Decreased Appetite No Total MST Score 0 No Personal Devices, Patient Valuables Glasses Anesthesia/Transfusions Prior anesthesia Admission Note-Nursing Same Day Patient History . Assessment and Plan [place] [employer] Anesthesiologists (ASA) physical status classification: Class III. Anesthetic Preoperative Plan Premedication: intravenous. Anesthetic technique: General. Induction: intravenously. Maintenance airway: Oral endotracheal tube. Postoperative pain management: Per surgeon. Risks discussed: nausea, vomiting, headache, sore throat, dental injury, hypotension, allergic reaction, serious complications. Informed consent: signed by patient. Digitally Signed by ELLIE KAMINSKI on 07/22/2023 09:58 AM Digitally Signed by ELLIE KAMINSKI on 07/22/2023 09:59 AM [facility] Appointment Date:12/05/2021 09:00:00 AM Scheduled Provider:EVELIO STEPHENS APRN, CNP Location:[facility] [place] Appointment Type: Wellness Annual w/Labs Appointment Date:12/25/2021 09:20:00 AM Scheduled Provider:EVELIO STEPHENS APRN, CNP Location:[facility] [place] Appointment Type:PC OV Controlled Medication Future Scheduled Tests Laboratory* Complete Blood Count 02/27/21 * Lipid Profile 02/27/21 * Complete Metabolic Panel 02/27/21 [facility] Evaluation + Plan note Future Appointments Appointment Date:12/07/2022 09:40:00 AM Scheduled Provider:EVELIO STEPHENS APRN, CNP Location:[facility] [place] Appointment Type: Wellness Annual w/Labs Appointment Date:01/04/2023 10:00:00 AM Scheduled Provider:EVELIO STEPHENS APRN, CNP Location:[facility] [place] Appointment Type:PC OV Controlled Medication [facility] Evaluation + Plan note Future Appointments Appointment Date:08/05/2023 01:20:00 PM Scheduled Provider:NGOC JONES MD Location:[facility] Appointment Type:GS OV Post Op Appointment Date:08/23/2023 09:00:00 AM Scheduled Provider:EVELIO STEPHENS APRN, CNP Location:[facility] [place] Appointment Type:PC OV Controlled Medication Future Scheduled Tests Laboratory* Lipid Profile 06/06/23 * Microalbumin Level Urine 06/06/23 * Vitamin D Level 06/06/23 * Complete Metabolic Panel 06/06/23 [facility] Evaluation + Plan note Future Appointments Appointment Date:12/13/2023 09:40:00 AM Scheduled Provider:EVELIO STEPHENS APRN, CNP Location:[facility] [place] Appointment Type:PC Wellness Annual Appointment Date:02/20/2024 09:40:00 AM Scheduled Provider:EVELIO STEPHENS APRN, CNP Location:[facility] [place] Appointment Type:PC OV Controlled Medication Future Scheduled Tests Laboratory* Lipid Profile 06/06/23 * Microalbumin Level Urine 06/06/23 * Vitamin D Level 06/06/23 * Complete Metabolic Panel 06/06/23 [facility] Matchaluation + Plan note Future Appointments Appointment Date:05/11/2025 09:00:00 AM Scheduled Provider:EVELIO STEPHENS APRN, CNP Location:[facility] [place] Appointment Type:PC Wellness Medicare with Labs Appointment Date:05/11/2025 09:00:00 AM Scheduled Provider: Location:[facility] [place] Appointment Type:PC Nurse Lab Appointment Date:05/27/2025 10:20:00 AM Scheduled Provider:EVELIO STEPHENS APRN, CNP Location:[facility] [place] Appointment Type:PC OV Controlled Medication [facility] Matchaluation + Plan note Future Appointments Appointment Date:05/27/2025 10:20:00 AM Scheduled Provider:EVELIO STEPHENS APRN, CNP Location:[facility] [place] Appointment Type:PC OV Controlled Medication [facility] Hospital course Narrative No data available for this section [facility] Hospital Discharge instructions No data available for this section [facility] Progress note No data available for this section [facility] Summary Purpose Family History No Family History Records FoundNo Family History Records Found No data available for this section No data available for this section No data available for this section No Family History Records Found No data available for this section No data available for this section No data available for this section No Family History Records Found Advance Directives No Advanced Directives Records FoundNo Advanced Directives Records FoundNo Advanced Directives Records FoundNo Advanced Directives Records Found Additional Source Comments INFORMATION SOURCE (unrecogn ized section and content) DATE CREATED AUTHOR 05/06/2020 [facility] DATE CREATED AUTHOR AUTHOR'S ORGANIZ ATION 01/15/2021 [facility] DATE CREATED AUTHOR AUTHOR'S ORGANIZ ATION 03/13/2024 [facility] DATE CREATED AUTHOR AUTHOR'S ORGANIZ ATION 05/20/2025 [facility] Care Team (unrecognized sect ion and content) Care Team Personnel Name: EVELIO STEPHENS APRN, CNP Position: P4 Advanced Practice Nurse Member Role: Primary Care Physician Address: Address: [address] [place] [id number] [place] [address] Care Team Related Persons Name: BUTCH TIRADO Address: [address] [place] [address] [place] Patient Care team informatio n (unrecognized section and content) Care Team Personnel Name: EVELIO STEPHENS APRN, CNP Position: P4 Advanced Paper Bundler Member Role: Primary Care Physician Address: Address: [address] [place] [id number] [place] Care Team Related Persons Name: BUTCH TIRADO Address: Home [address] [place], [place] [id number] [place] Care Team Personnel Name: NGOC JONES MD Position: P4 Physician - General Surgery Member Role: Surgeon Address: Address: [address] [facility] [place] [address]- Name: EVELIO STEPHENS APRN - HOOK AND EYE MACHINE OPERATOR Position: P4 Advanced Paper Bundler Member Role: Primary Care Physician Address: Address: [address] [place] [address]- Care Team Related Persons Name: BUTCH TIRADO Address: Home [address] [place], [place] [id number] [place] Care Team Personnel Name: NGOC JONES MD Position: P4 Physician - General Surgery Member Role: Surgeon Address: Address: [address] [facility] [place] [address]- Name: EVELIO STEPHENS APRN - HOOK AND EYE MACHINE OPERATOR Position: P4 Advanced Paper Bundler Member Role: Primary Care Physician Address: Address: [address] [place] [address] Care Team Related Persons Name: BUTCH TIRADO Address: Home [address] [place] [phone] [place] Care Team Personnel Name: NGOC JONES MD Position: P4 Physician - General Surgery Member Role: Surgeon Address: [address] [facility] [place] [address]- Telecom: Name: EVELIO STEPHENS TUBING MILL 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 Position: P4 Advanced Paper Bundler Member Role: Primary Care Physician Address: [address] [place] [id number]- Telecom: Care Team Related Persons Name: BUTCH TIRADO Care Team Personnel Name: NGOC JONES MD Position: P4 Physician - General Surgery Member Role: Surgeon Address: [address] [facility] [place] [address]- [place] Telecom: Name: EVELIO STEPHENS TUBING MILL 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 Position: P4 Advanced Paper Bundler Member Role: Primary Care Physician Address: [address] [place] [address]- Telecom: Care Team Related Persons Name: BUTCH TIRADO Care Team Personnel Name: NGOC JONES MD Position: P4 Physician - General Surgery Member Role: Surgeon Address: [address] [facility] [place] [address]- [place] Telecom: Name: BEBETO EVELIO Jeremie TUBING MILL OPERATOR [facility] Position: P4 Advanced Paper Bundler Member Role: Primary Care Physician Address: [address] [place] [address]- Telecom: Care Team Related Persons Name: BUTCH TIRADO FOR RECORDS PERTAINING TO PATIENTS WHO ARE OR HAVE BEEN ENROLLED IN A CHEMICAL DEPENDENCY/SUBSTANCEABUSE PROGRAM, SOME INFORMATION MAY BE OMITTED. This clinical summary was aggregated from multiple sources. Caution should be exercised in using it in the provision of clinical care. This summary normalizes information from multiple sources, and as a consequence, information in this document may materially change the coding, format and clinical context of patient data. In addition, data may be omitted in some cases. CLINICAL DECISIONS SHOULD BE BASED ON THE PRIMARY CLINICAL RECORDS. [employer] [facility]. provides no warranty or guarantee of the accuracy or completeness of information in this document.
== END | disposition home or self-care (01) ==
LOC: RAD 12:05
PROVIDERS: PCP Nurse Practitioner Family; Referring Provider Clinical Nurse Specialist Adult Health; Visit Provider Clinical Nurse Specialist Adult Health
DX: M25.551 Pain in right hip (principal)
CPT/HCPCS: 73502